=== PATIENT | male | born 1940 | race Caucasian/White ===

== ENCOUNTER 2023-10-11 03:24 | Observation (INO) | payer MEDICARE, SELFPAY ==
[2023-10-10 22:29] VITALS: BMI 21.9
[2023-10-10 22:30] VITALS: BP 117/55
[2023-10-10 22:35] VITALS: BP 122/56
[2023-10-10 22:38] VITALS: BP 117/55
[2023-10-10 22:42] LABS: % Basophils 0.5 % (0-2); % Eosinophils 0.7 % (0-6); % Immature Granulocytes 0.3 % (0-0.5); % Lymphocytes 23.3 % (20.5-51.1); % Monocytes 7.5 % (1.7-9.3); % Neutrophils 67.7 % (42.2-75.2); Absolute Basophils 0.1 10^3/uL (0-0.2); Absolute Eosinophils 0.1 10^3/uL (0-0.7); Absolute Lymphocytes 2.7 10^3/uL (1.2-3.4); Absolute Monocytes 0.9 10^3/uL (0.1-0.6); Absolute Neutrophils 7.8 10^3/uL (1.4-6.5); Hematocrit 38.6 % (39.0-52.0); Hemoglobin 13.2 g/dL (13.0-18.0); Mean Corp Hgb Conc. 34.2 g/dL (33.0-37.0); Mean Corpuscular Hgb 30.2 pg (27.0-31.0); Mean Corpuscular Volume 88.3 fL (80.0-94.0); Mean Platelet Volume 9.4 fL (7.4-10.4); Nucleated Red Blood Cells % 0 % (-); Platelet Count 231 10^3/uL (130-400); Red Blood Cell Count 4.37 10^6/uL (4.70-6.10); Red Cell Dist. Width 14.5 % (11.5-14.5); White Blood Cell Count 11.5 10^3/uL (4.8-10.8)
[2023-10-10 22:56] LABS: INR 1.04; PT 13.7 Sec (11.4-14.6)
[2023-10-10 22:59] LABS: ALT (SGPT) 17 U/L (0-50); AST (SGOT) 20 U/L (17-59); Albumin 3.2 g/dl (3.5-5.0); Alkaline Phosphatase 117 U/L (38-126); Blood Urea Nitrogen 21 mg/dl (9-20); Calcium 9.4 mg/dl (8.4-10.2); Carbon Dioxide 22 mmol/L (22-30); Chloride 106 mmol/L (98-107); Estimated Creatinine Clearance 62 ml/min; Glucose 165 mg/dl (70-99); Potassium 3.8 mmol/L (3.5-5.1); Sodium 134 mmol/L (135-145); Total Bilirubin 0.7 mg/dl (0.2-1.3); Total Protein 5.9 g/dl (6.3-8.2); eGFR > 60.00
[2023-10-10 23:00] VITALS: BP 118/51
[2023-10-10 23:07] LABS: Troponin I < 0.012 ng/ml
--- NOTE | 2023-10-10 23:27 | ED.GENMED ---
History of Present Illness
General
Chief Complaint: Fainting/Passed Out
Time Seen by Provider: 10/10/23 22:56
Travel History
Have you had any contact with someone who has COVID-19?: No
Do you have any symptoms of coronavirus? Fever > 100 degrees, chills, cough, shortness of breath, sore throat, loss of taste or smell, muscle aches, or headache?: No
History of Present Illness
History of Present Illness:
82-year-old male presents emergency department after fainting spell that occurred while he was watching TV with his partner. His partner called 911. He was found to have a systolic blood pressure of 70 and a heart rate of 40 and was given 550 mL
of normal saline.
Past History
Past History
ED Past Medical History: Other (Review documented past medical history and agree)
ED Past Surgical History: Other (Review documented and agree with past medical history)
Phy Exam
Physical Exam
Physical Exam:
Physical Exam
General: no apparent distress, not acutely ill
Neck: supple. no meningeal signs. normal posterior pharynx
Heart: s1/s2 bradycardia, no murmur. equal radial
pulses.
HEENT: Pupils equal round reactive to light, EOMI
Lungs: no acute respiratory distress. clear bilaterally
Abdomen: normal bowel sounds. not tender. no CVAT
Neuro: alert and oriented. no focal neurological deficits cranial nerves II through XII intact
Skin: no rash
Psychiatric: well kept. interactive and cooperative
Extremities: no edema. no calf tenderness. negative homans. good distal pulses
Course
Orders/Labs/Results
Orders:
Orders
10/10/23 22:34
Electrocardiogram (*1) Urgent
Reason for Study: Chest Pain
Cardiac Monitoring- Treatment ONCE
EKG- Treatment ONCE
IV Insert/Care/Rem.- Treatment PRN
O2 Therapy [RESP] Urgent
Titrate/Wean O2 to maintain O2 sat greater than (%): 90
Special Instructions: Maintain sats >/=90%
Pulse Ox/spot Check [RESP] Urgent
Quantity: 1
Special Instructions: ON ROOM AIR
10/10/23 22:37
Complete Blood Count/With Diff Urgent
Comprehensive Metabolic Panel Urgent
Prothrombin Time Urgent
Troponin I Urgent
10/10/23 23:25
Ondansetron Injectable [Zofran] 4 mg IV NOW STA
10/10/23 23:29
0.9% Sodium Chloride 1000 ml [Nss] 1,000 ml IV BOLUS
10/11/23 02:01
Admit/Transfer Patient As Directed
Co-Sign Provider:
Level of Care: Observation services
Assign to:: Telemetry
Physician / Group: John
Diagnosis: Syncope
Reason for Telemetry: Syncope
Date to Stop Telemetry: 10/13/23
Time to Stop Telemetry: 11:00
Code Status As Directed
Resuscitation Status: Full Code
10/13/23 11:00
DC Protocol for Telemetry ONCE
Abnormal Lab Results
10/10/23
22:37
WBC 11.5 H 10^3/uL
(4.8-10.8)
RBC 4.37 L 10^6/uL
(4.70-6.10)
Hct 38.6 L %
(39.0-52.0)
Absolute Neuts (auto) 7.8 H 10^3/uL
(1.4-6.5)
Absolute Monos (auto) 0.9 H 10^3/uL
(0.1-0.6)
Sodium 134 L mmol/L
(135-145)
BUN 21 H mg/dl
(9-20)
Glucose 165 H mg/dl
(70-99)
Total Protein 5.9 L g/dl
(6.3-8.2)
Albumin 3.2 L g/dl
(3.5-5.0)
10/10/23 22:37
10/10/23 22:37
Vital Signs
Initial and Last Documented VS:
Initial Vital Signs
Temp Pulse Resp BP Pulse Ox
98.5 F 52 13 117/55 99
10/10/23 22:30 10/10/23 22:30 10/10/23 22:30 10/10/23 22:30 10/10/23 22:30
Last Documented Vital Signs
Temp Pulse Resp BP Pulse Ox
98.5 F 53 11 100/60 96
10/10/23 22:30 10/11/23 01:30 10/11/23 01:30 10/11/23 01:30 10/11/23 01:30
MDM/Problems Addressed
Differential Diagnosis Includes:
Dysrhythmia, hypovolemia, syncope
MDM/Problems Addressed:
82-year-old male with syncope episode, possibly due to hypovolemia versus vasovagal. No signs of dysrhythmia, but continues with bradycardia. Admit to hospitalist for further management and monitoring. Patient possibly may have a viral syndrome
and possibly overmedicated with antihypertensives.
Chronic conditions affecting care: COPD
Acute Exacerbation and/or Progression of Chronic Illness: COPD
*Pulse Oximetry
Patient hypoxic: no
*EKG
Interpreted by ED Provider?: Yes
EKG Intrepretation Date: 10/10/23
EKG Intrepretation Time: 22:37
Interpretation: abnormal
Comparison EKG: changes noted
Heart Rate: 50
Rate: bradycardiac
Rhythm: sinus
[place]: normal axis
Interval: first degree heart block
QRS Pattern: normal QRS
Ischemia: no ischemia
*Report Manager Interpretation
Rate: bradycardiac
Interpretation: abnormal
Heart Rate: 50
Rhythm: sinus
*Critical Care Note
Total Time (30-74mins, 75-104mins- exclusive of procedures): Not Applicable
Data Reviewed
Review of Other/Old Records Reveals: Testing (Prior echocardiogram shows left EF 60 to 65%, moderate aortic regurgitation, mild tricuspid regurgitation, performed on 04/12/2021)
Source: records
Patient Management
Social determinants of health affecting care: Living situation
Discussion with other providers: Hospitalist
Escalation/DeEscalation of care consider admission/obs:
Admit indicated
ED Attending Note
-
Portions of this chart may have been created with voice recognition software.� Occasional wrong word or��sound alike� substitutions may have occurred due to the inherent limitations of voice recognition software.
Discharge Plan
Departure
Patient Disposition: Admit
Date of Disposition: 10/11/23
Time of Disposition: 01:25
Admit to: Telemetry
Presentation/result/management discussed w/ accepting MD/DO: Hospitalist
Patient with high blood pressure during this ER visit?: No
Condition: Good
Discharge Problem:
Syncope, Vomiting, Acute hypotension, Bradycardia
Prescriptions:
No Action
aspirin 81 mg Tablet
81 mg PO DAILY
ezetimibe 10 mg Tablet
10 mg PO DAILY
rosuvastatin 40 mg Tablet
40 mg PO DAILY
Spiriva Respimat 2.5 mcg/actuation Mist
1 puff INHALATION BID
Incruse Ellipta 62.5 mcg/actuation Blister With Device
1 inh INHALATION DAILY
Norvasc
1 tab PO DAILY
Rx Instructions:
unsure of mg
ramipril
1 tab PO DAILY
Patient Comments:
unsure of mg
Referrals:
Xavier Salazar MD [Family Provider] -
Interventions
Interventions:
*Risk Screen - Suicide Last Done: 10/10/23 22:30
*General Assessment Last Done: 10/10/23 22:30
*Neglect/Abuse Screening Last Done: 10/10/23 22:30
ED- Fall Risk Assessment Last Done: 10/10/23 22:30
*ED COVID-19 Vaccine History Last Done: 10/10/23 22:30
ED- Cardiac Assessment Last Done: 10/10/23 23:05
ED- Neurological Assessment Last Done: 10/10/23 23:05
[2023-10-10 23:30] VITALS: BP 109/47
[2023-10-10] MEDS: NSS 1000 IV (23:32)
[2023-10-10] MEDS: ZOFRAN 4 MG IV (23:33)
[2023-10-11] VITALS (10 sets, daily range): BP systolic 100–130; BP diastolic 56–72; PULSE 59–77; BMI 21.4
--- NOTE | 2023-10-11 02:03 | HPS.HSE ---
Family Physician
-
Family Physician: Xavier Salazar
Chief Complaint
-
Syncope
History of Present Illness
Patient is an 82y M with PMH significant for COPD, spinal stenosis, peripheral neuropathy and HTN who presents to ED complaining of syncopal episode. Patient states that he was seated on his couch this evening and was drinking a diet soda when
he began to feel 'dizzy'. He then lost consciousness for several minutes. Patient states that he did not fall from the couch or suffer any evident injury during this episode. Other than dizzy sensation, he had no prodrome of chest pain, dyspnea,
nausea, etc. Upon waking, he did have N/V x 1 episode of primarily liquid / soda. He presented to the ED for further evaluation. He states that he currently feels tired, but otherwise has no complaints.
He reports one similar episode about 6 months ago. He felt similarly dizzy at that time, but was able to lie down and his symptoms resolved without wiley syncope.
He denies any recent medication changes or adjustments.
He recently returned from his home in [place] and states that he has had a 'cold' since his flight home.
No other recent illness / complaints.
Medical History
Past Medical History
Past Medical History: Reports Other
Additional Past Medical History:
COPD
Hypertension
DDD / Spinal Stenosis
Peripheral Neuropathy
Aortic Regurgitation
Past Surgical History: Reports Other
Additional Past Surgical History:
Cervical Laminectomy
Pilonidal Cyst
T&A
RF Ablation(s)
Social History
Tobacco: Smoker (Current every day smoker. Approx 4 cigarettes per day at present. > 50 pack years total use.)
Alcohol: Occasional
Family History
Family History: Not pertinent
Allergies / Home Medications
Allergies reflects when Allergies were last updated in [employer].
Home Medications with original date entered in [employer]
Allergy/Medication List:
Allergies
Allergy/AdvReac Type Severity Reaction Status Date / Time
No Known Allergies Allergy Verified 10/10/23 22:34
Home Medications
Norvasc 1 tab PO DAILY 10/10/23
aspirin 81 mg tablet 81 mg PO DAILY 10/10/23
ezetimibe 10 mg tablet 10 mg PO DAILY 10/10/23
ramipril 1 tab PO DAILY 10/10/23
rosuvastatin 40 mg tablet 40 mg PO DAILY 10/10/23
tiotropium bromide 2.5 mcg/actuation mist for inhalation (Spiriva Respimat) 1 puff inhalation BID 10/10/23
umeclidinium 62.5 mcg/actuation blister powder for inhalation (Incruse Ellipta) 1 inh inhalation DAILY 10/10/23
Review of Systems
-
History Source: Patient
A 12 point ROS was completed and negative except as noted: Yes
Constitutional: Reports Weight Loss and Fatigue; Denies Fever or Chills
Respiratory: Denies Cough or Trouble Breathing
Cardiac: Reports Syncope; Denies Chest Pain or Palpitations
Abdomen/GI: Reports Nausea and Vomiting; Denies Abdominal Pain or Diarrhea
: Denies Dysuria or Frequency
Musculoskeletal: Denies Joint Pain or Edema
Neurological: Reports Dizzy and Other (Neuropathy); Denies Headache
Psych: Denies Depression or Anxiety
Physical Exam
Vital Signs
Vital Signs
Temp Pulse Resp BP Pulse Ox
98.5 F 53 11 100/60 96
10/10/23 22:30 10/11/23 01:30 10/11/23 01:30 10/11/23 01:30 10/11/23 01:30
Physical Exam
General: Other (82y M in no acute distress.)
HEENT: Moist mucous membranes and PERRLA
Respiratory: Other (Few scattered squeaks and wheezes. Otherwise clear.)
Cardiac: S1/S2 and Regular Rhythm; No Murmur
GI: Soft, Non Tender, Non Distended and Normal Bowel Sounds
Musculoskeletal: No Clubbing, No Cyanosis and No Edema
Neuro: AO x 3
Laboratory Results
-
10/10/23 22:37
10/10/23 22:37
Laboratory Results
PT 13.7 Sec (11.4-14.6) 10/10/23 22:37
INR 1.04 10/10/23 22:37
Total Bilirubin 0.7 mg/dl (0.2-1.3) 10/10/23 22:37
AST 20 U/L (17-59) 10/10/23 22:37
ALT 17 U/L (0-50) 10/10/23:37
Alkaline Phosphatase 117 U/L (38-126) 10/10/23 22:37
Troponin I < 0.012 ng/ml 10/10/23:37
Impression/Plan
-
A/P: Patient is an 82y M with PMH significant for COPD, HTN and neuropathy who presents to ED s/p syncopal episode at home.
Syncope
Hypotension
Bradycardia
- Observe overnight for further evaluation and treatment.
- ? syncope secondary to mild hypotension / bradycardia.
- ? vasovagal event given associated N/V.
- Monitor on tele for any arrhythmia, significant pauses or blocks.
- Patient is on no chronotropic medications.
- Consider Cardio eval if any significant abnormalities (sees Dr. Lowe).
- PT / OT evals in the AM.
- Monitor for any new / recurrent symptoms.
- Check COVID / influenza for completeness given recent air travel and 'cold symptoms'.
Benign Hypertension
- Currently hypotensive as noted above.
- Patient denies any recent med adjustments.
- Reports recent weight loss and ? if current regimen is no longer appropriate.
- Hold BP meds acutely.
- Resume at lower doses if BP rises.
COPD without Acute Exacerbation
- No wheezing on exam and no complaints of dyspnea.
- Continue current inhaler regimen.
- Albuterol PRN.
Spinal Stenosis
Peripheral Neuropathy
- Stable. Patient notes that he uses a 4-wheeled walker at baseline.
- s/p cervical spine surgery for stenosis - no appreciable change in neuropathic symptoms thus far per patient.
- PT / OT evals as noted above.
DVT Prophylaxis: SCDs
Code Status: Full
[2023-10-11 03:15] LABS: COVID-19 Antigen Negative (Negative)
[2023-10-11] MEDS: TYLENOL 650 MG PO (03:29)
[2023-10-11 04:12] LABS: Hematocrit 40.6 % (39.0-52.0); Hemoglobin 13.5 g/dL (13.0-18.0); Mean Corp Hgb Conc. 33.3 g/dL (33.0-37.0); Mean Corpuscular Volume 90.2 fL (80.0-94.0); Mean Platelet Volume 9.4 fL (7.4-10.4); Platelet Count 226 10^3/uL (130-400); Red Cell Dist. Width 14.6 % (11.5-14.5); White Blood Cell Count 9.3 10^3/uL (4.8-10.8)
[2023-10-11] MEDS: LR 1000 IV (04:20)
[2023-10-11 04:36] LABS: Troponin I < 0.012 ng/ml
[2023-10-11 04:59] LABS: Blood Urea Nitrogen 21 mg/dl (9-20); Calcium 9.5 mg/dl (8.4-10.2); Carbon Dioxide 23 mmol/L (22-30); Chloride 107 mmol/L (98-107); Estimated Creatinine Clearance 60 ml/min; Glucose 139 mg/dl (70-99); Potassium 4.4 mmol/L (3.5-5.1); Sodium 136 mmol/L (135-145); eGFR > 60.00
[2023-10-11 05:28] LABS: TSH Reflex To Free T4 0.82 uIU/ml (0.47-4.68)
[2023-10-11] MEDS: SPIRIVA RESPIMAT 2.5 MCG 1 PUFF INH (08:00)
[2023-10-11] MEDS: CRESTOR 40 MG PO (08:15)
[2023-10-11] MEDS: ZETIA 10 MG PO (08:15)
[2023-10-11] MEDS: LOW STRENGTH ASPIRIN 81 MG PO (08:15)
--- NOTE | 2023-10-11 10:27 | PTCARENOTE ---
Pt admitted overnight and this nurse was given report this AM. pt was cooperative and went down for his Chest Xray but at this point is refusing all other treatment. pt refused to let phlebotomy draw his troponin, refused to talk to the concrete floater
about the 15lb weight loss that he has unexpectedly had, and has refused anything until MD comes tobedside to talk to him. MD made aware. pt was running bradycardic this AM currently sitting in the 60/70's on tele at this time.
--- NOTE | 2023-10-11 10:39 | CM ---
Reviewed the chart notes and spoke with the patient at the bedside. [employer] letter provided and explained. There were no questions with regards to the letter.
The patient resides with two caregivers in a three story home with no steps to enter. The patient has a rolling walker, shower chair, rails, and a stair glide. The patient reports no VN or SNF in the past. The patient confirmed his pharmacy of
choice is the [facility]. The patient is being discharged to home today with no additional needs. The patient's route sales delivery drivers supervisor will provide transportation. CM continues to be available to patient/family and is monitoring medical plan for
needs at discharge.
Plan: Discharge to home today.
--- NOTE | 2023-10-11 10:50 | W.DS.TRANS ---
DC Summary - Bottle Tester
-
Discharge Instructions:
Discharge Diagnosis/Procedures Syncope.
Hypotension
Diet Regular
Stop these medications: Ramipril and Norvasc until seen by PMD and
cardiology
Instructions:
Stand-Alone Forms:
Changes to Home Medications: Yes
Discharge Medications:
DC Medications w/original date entered in [employer]
aspirin 81 mg tablet 81 mg PO DAILY 10/10/23
ezetimibe 10 mg tablet 10 mg PO DAILY 10/10/23
rosuvastatin 40 mg tablet 40 mg PO DAILY 10/10/23
tiotropium bromide 2.5 mcg/actuation mist for inhalation (Spiriva Respimat) 1 puff inhalation BID 10/10/23
umeclidinium 62.5 mcg/actuation blister powder for inhalation (Incruse Ellipta) 1 inh inhalation DAILY 10/10/23
Home Medication Changes
Ramipril and Norvasc stopped due to symptomatic hypotension with syncope.
Pending Results: No
--- NOTE | 2023-10-11 11:06 | PTCARENOTE ---
pt tele monitor and IV removed for discharge. pt is discharged to home with his caregivers and partner. pt is aaox3 and this nurse went over discharged instructions with the patient.
== END 2023-10-11 11:18 | disposition home or self-care (01) ==
LOC: 2 NORTH 03:24
PROVIDERS: Emergency Medicine; ADMITTING PHYSICIAN Hospitalist; ATTENDING PHYSICIAN Internal Medicine; EMERGENCY PHYSICIAN Emergency Medicine; FAMILY PHYSICIAN Internal Medicine
DX: R55 Syncope and collapse (principal); J44.9 Chronic obstructive pulmonary disease, unspecified; G62.9 Polyneuropathy, unspecified; I10 Essential (primary) hypertension; M48.00 Spinal stenosis, site unspecified; I35.1 Nonrheumatic aortic (valve) insufficiency; F17.210 Nicotine dependence, cigarettes, uncomplicated; R00.1 Bradycardia, unspecified; Z11.52 Encounter for screening for COVID-19; Z79.82 Long term (current) use of aspirin; Z79.899 Other long term (current) drug therapy
CPT/HCPCS: 71046; 80048; 80053; 84443; 84484; 85025; 85027; 85610; 87502; 87811; 93005; 94640; 96361; 96374; 99285; G0378

== ENCOUNTER → 2023-11-19 12:32 | Outpatient (REF) | payer MEDICARE, SELFPAY ==
[2023-11-19 14:05] LABS: Blood Urea Nitrogen 25 mg/dl (9-20); Calcium 10.3 mg/dl (8.4-10.2); Carbon Dioxide 23 mmol/L (22-30); Chloride 107 mmol/L (98-107); Glucose 85 mg/dl (70-99); Potassium 4.5 mmol/L (3.5-5.1); Sodium 137 mmol/L (135-145); eGFR > 60.00
== END ==
LOC: RAD 12:32
PROVIDERS: Physician Assistant Medical; ATTENDING PHYSICIAN Specialist; FAMILY PHYSICIAN Internal Medicine; REFERRING PHYSICIAN Surgery
DX: Z98.1 Arthrodesis status (principal); I10 Essential (primary) hypertension
CPT/HCPCS: 36415; 72040; 80048

== ENCOUNTER → 2023-12-12 12:25 | Outpatient (REF) | payer MEDICARE, SELFPAY | LOC: WOUND 12:25 | PROVIDERS: ATTENDING PHYSICIAN Surgery; FAMILY PHYSICIAN Internal Medicine | DX: I70.238 Atherosclerosis of native arteries of right leg with ulceration of other part of lower leg (principal); L97.813 Non-pressure chronic ulcer of other part of right lower leg with necrosis of muscle; L97.812 Non-pressure chronic ulcer of other part of right lower leg with fat layer exposed; I87.2 Venous insufficiency (chronic) (peripheral); I44.4 Left anterior fascicular block; F17.200 Nicotine dependence, unspecified, uncomplicated; I35.1 Nonrheumatic aortic (valve) insufficiency; J44.9 Chronic obstructive pulmonary disease, unspecified | CPT/HCPCS: 11042; 11043; 99204; 99406 ==

== ENCOUNTER → 2023-12-19 13:45 | Outpatient (REF) | payer MEDICARE, SELFPAY | LOC: WOUND 13:45 | PROVIDERS: ATTENDING PHYSICIAN Surgery; FAMILY PHYSICIAN Internal Medicine | DX: L97.813 Non-pressure chronic ulcer of other part of right lower leg with necrosis of muscle (principal); L97.812 Non-pressure chronic ulcer of other part of right lower leg with fat layer exposed; I87.2 Venous insufficiency (chronic) (peripheral); I73.9 Peripheral vascular disease, unspecified; I44.4 Left anterior fascicular block; I35.1 Nonrheumatic aortic (valve) insufficiency; J44.9 Chronic obstructive pulmonary disease, unspecified; F17.200 Nicotine dependence, unspecified, uncomplicated | CPT/HCPCS: 11042 ==

== ENCOUNTER → 2023-12-30 11:01 | Outpatient (REF) | payer MEDICARE, SELFPAY | LOC: WOUND 11:01 | PROVIDERS: ATTENDING PHYSICIAN Surgery; FAMILY PHYSICIAN Internal Medicine | DX: I70.238 Atherosclerosis of native arteries of right leg with ulceration of other part of lower leg (principal); L97.813 Non-pressure chronic ulcer of other part of right lower leg with necrosis of muscle; L97.812 Non-pressure chronic ulcer of other part of right lower leg with fat layer exposed; I87.2 Venous insufficiency (chronic) (peripheral); I73.9 Peripheral vascular disease, unspecified; F17.200 Nicotine dependence, unspecified, uncomplicated; I44.4 Left anterior fascicular block; I35.1 Nonrheumatic aortic (valve) insufficiency; J44.9 Chronic obstructive pulmonary disease, unspecified | CPT/HCPCS: 11042 ==

== ENCOUNTER → 2024-01-21 13:07 | Outpatient (REF) | payer MEDICARE, SELFPAY | LOC: WOUND 13:07 | PROVIDERS: ATTENDING PHYSICIAN Surgery; FAMILY PHYSICIAN Internal Medicine | DX: I70.238 Atherosclerosis of native arteries of right leg with ulceration of other part of lower leg (principal); L97.813 Non-pressure chronic ulcer of other part of right lower leg with necrosis of muscle; L97.812 Non-pressure chronic ulcer of other part of right lower leg with fat layer exposed; I87.2 Venous insufficiency (chronic) (peripheral); I44.4 Left anterior fascicular block; I35.1 Nonrheumatic aortic (valve) insufficiency; J44.9 Chronic obstructive pulmonary disease, unspecified; F17.200 Nicotine dependence, unspecified, uncomplicated | CPT/HCPCS: 99213 ==

== ENCOUNTER → 2024-01-30 13:41 | Outpatient (REF) | payer MEDICARE, SELFPAY | LOC: WOUND 13:41 | PROVIDERS: ATTENDING PHYSICIAN Surgery; FAMILY PHYSICIAN Internal Medicine | DX: I70.238 Atherosclerosis of native arteries of right leg with ulceration of other part of lower leg (principal); L97.813 Non-pressure chronic ulcer of other part of right lower leg with necrosis of muscle; L97.812 Non-pressure chronic ulcer of other part of right lower leg with fat layer exposed; I87.2 Venous insufficiency (chronic) (peripheral); I44.4 Left anterior fascicular block; I35.1 Nonrheumatic aortic (valve) insufficiency; J44.9 Chronic obstructive pulmonary disease, unspecified | CPT/HCPCS: 11042 ==

== ENCOUNTER → 2024-02-07 12:24 | Outpatient (REF) | payer MEDICARE, SELFPAY ==
[2024-02-07 14:11] LABS: Blood Urea Nitrogen 20 mg/dl (9-20); Calcium 10.1 mg/dl (8.4-10.2); Carbon Dioxide 22 mmol/L (22-30); Chloride 109 mmol/L (98-107); Glucose 89 mg/dl (70-99); Potassium 4.7 mmol/L (3.5-5.1); Sodium 138 mmol/L (135-145); eGFR > 60.00
== END ==
LOC: RAD 12:24
PROVIDERS: ATTENDING PHYSICIAN Surgery; FAMILY PHYSICIAN Internal Medicine; OTHER PHYSICIAN Anesthesiology Pain Medicine; OTHER PHYSICIAN Neurological Surgery; REFERRING PHYSICIAN Specialist
DX: I70.238 Atherosclerosis of native arteries of right leg with ulceration of other part of lower leg (principal); I87.2 Venous insufficiency (chronic) (peripheral); I73.9 Peripheral vascular disease, unspecified; I10 Essential (primary) hypertension
CPT/HCPCS: 36415; 80048; 93922; 93925; 93971

== ENCOUNTER → 2024-02-11 12:43 | Outpatient (REF) | payer MEDICARE, SELFPAY | LOC: WOUND 12:43 | PROVIDERS: ATTENDING PHYSICIAN Surgery; FAMILY PHYSICIAN Internal Medicine | DX: I70.238 Atherosclerosis of native arteries of right leg with ulceration of other part of lower leg (principal); L97.813 Non-pressure chronic ulcer of other part of right lower leg with necrosis of muscle; L97.812 Non-pressure chronic ulcer of other part of right lower leg with fat layer exposed; I87.2 Venous insufficiency (chronic) (peripheral); I44.4 Left anterior fascicular block; I35.1 Nonrheumatic aortic (valve) insufficiency; J44.9 Chronic obstructive pulmonary disease, unspecified; F17.200 Nicotine dependence, unspecified, uncomplicated | CPT/HCPCS: 99213 ==

== ENCOUNTER → 2024-02-17 13:53 | Outpatient (REF) | payer MEDICARE, SELFPAY ==
[2024-02-17 14:22] LABS: % Basophils 0.6 % (0-2); % Immature Granulocytes 0.1 % (0-0.5); % Lymphocytes 31.4 % (20.5-51.1); % Monocytes 7.9 % (1.7-9.3); Absolute Basophils 0.1 10^3/uL (0-0.2); Absolute Eosinophils 0.1 10^3/uL (0-0.7); Absolute Lymphocytes 2.8 10^3/uL (1.2-3.4); Absolute Monocytes 0.7 10^3/uL (0.1-0.6); Absolute Neutrophils 5.2 10^3/uL (1.4-6.5); Hematocrit 43.5 % (39.0-52.0); Mean Corp Hgb Conc. 34.5 g/dL (33.0-37.0); Mean Corpuscular Hgb 30.9 pg (27.0-31.0); Mean Corpuscular Volume 89.7 fL (80.0-94.0); Nucleated Red Blood Cells % 0 % (-); Platelet Count 228 10^3/uL (130-400); Red Blood Cell Count 4.85 10^6/uL (4.70-6.10); Red Cell Dist. Width 15.2 % (11.5-14.5); White Blood Cell Count 8.9 10^3/uL (4.8-10.8)
== END ==
LOC: REG 13:53
PROVIDERS: ATTENDING PHYSICIAN Internal Medicine; FAMILY PHYSICIAN Internal Medicine
DX: Z01.818 Encounter for other preprocedural examination (principal); M48.04 Spinal stenosis, thoracic region
CPT/HCPCS: 36415; 85025

== ENCOUNTER → 2024-04-17 11:35 | Outpatient (REF) | payer MEDICARE, SELFPAY | LOC: RAD 11:35 | PROVIDERS: ATTENDING PHYSICIAN Orthopaedic Surgery; FAMILY PHYSICIAN Internal Medicine | DX: M89.8X5 Other specified disorders of bone, thigh (principal); M25.551 Pain in right hip; M54.50 Low back pain, unspecified | CPT/HCPCS: 72100; 73502; 73552 ==

== ENCOUNTER → 2024-06-02 12:51 | Outpatient (REF) | payer MEDICARE, SELFPAY | LOC: RAD 12:51 | PROVIDERS: ATTENDING PHYSICIAN Surgery Vascular Surgery; FAMILY PHYSICIAN Internal Medicine | DX: I73.9 Peripheral vascular disease, unspecified (principal) | CPT/HCPCS: 93922 ==

== ENCOUNTER 2024-06-10 23:03 | Inpatient (IN) | payer MEDICARE, SELFPAY ==
--- NOTE | 2024-06-10 19:40 | ED.GENMED ---
History of Present Illness
General
Chief Complaint: Fall
Source: patient
Exam Limitations: none
Time Seen by Provider: 06/10/24 19:04
Nursing documentation reviewed up to this point in time: agreed with
History of Present Illness
History of Present Illness:
Patient presents to ED secondary to persistent right hip pain, after falling onto his right hip after lunch this afternoon. Denies any other injury. Denies loss of sensation or weakness. Patient currently does not take any blood thinning
medications. Patient has taken Tylenol at home with minimal relief in symptoms.
Past History
Past History
ED Past Medical History: Other (Review documented past medical history and agree)
ED Past Surgical History: Other (Review documented and agree with past medical history)
Review of Systems
Review of Systems
Allergies reviewed?: Yes
All Other Systems: ROS reviewed and negative except as documented in HPI and ROS
Constitutional: Reports no symptoms
ABD/GI: Reports no symptoms
Musculoskeletal: Reports other (hip pain)
Skin: Reports no symptoms
Neurological: Reports no symptoms
Phy Exam
Physical Exam
Physical Exam:
Physical Exam
General: mild painful distress, not acutely ill. afebrile.
Head: nc/at. eomi
Neck: supple. no meningeal signs.
Abdomen: normal bowel sounds. not tender.
Neuro: alert and oriented. no focal neurological deficits
Skin: no rash
Psychiatric: well kept. interactive and cooperative
Extremities: right hip externally rotated with diffuse tenderness to palpation.
Course
Orders/Labs/Results
Orders:
Orders
06/10/24 19:29
HYDROmorphone [Dilaudid] 0.5 mg IV NOW STA
CR Hip - RT w/wo Pel 2-3 Vw* Urgent
Comment:
Reason For Exam: trauma
Include a pelvis x-ray?: Yes
06/10/24 19:41
Ketorolac [Toradol] 15 mg IV NOW STA
06/10/24 22:13
Acetaminophen [Tylenol] 1,000 mg PO NOW STA
06/10/24 22:25
Admit/Transfer Patient As Directed
Co-Sign Provider:
Level of Care: Inpatient admission
Assign to:: Telemetry
Physician / Group: John
Diagnosis: Hip Fracture
Reason for Telemetry: Arrhythmia
Date to Stop Telemetry: 06/13/24
Time to Stop Telemetry: 11:00
Reason for Hospitalization: Hip Fracture
Expected length of stay greater than two midnights?: Yes
ELOS- Estimated Length of Stay in days: 3
I certify the patient meets the requirements for IP care: Yes
PRN Pain Medication Management As Directed
May give lesser potent ordered pain med per pt: Yes
preference::
Protocol:: Medication orders for pain may be administered in a
manner that supports deferring to patient preference
when the pt is:
- Requesting an ordered lesser potent pain medication.
Least to most potent pain medications are defined
as: acetaminophen < NSAID < tramadol < opioids
(morphine, oxycodone, hydromorphone).
- Requesting a lesser dose of the same medication IF
ORDERED.
- Requesting a less intrusive route of administration
if both routes are prescribed by the provider (PO <
IV).
06/10/24 22:27
Code Status As Directed
Resuscitation Status: Full Code
06/10/24 22:36
BMP [Basic Metabolic Panel] Urgent
CBC/No Diff [Complete Blood Count/No Diff] Stat
06/10/24 22:48
Urinalysis Reflex To Culture Urgent
Date Specimen was Collected: 06/11/24
Time Specimen was Collected: 05:23
06/11/24 00:23
HYDROmorphone [Dilaudid] 0.25 mg IV Q3HPRN PRN
Oxycodone [Roxicodone] 10 mg PO Q4HPRN PRN
Oxycodone [Roxicodone] 5 mg PO Q4HPRN PRN
Tamsulosin [Flomax] 0.4 mg PO DAILYPRN PRN
06/11/24 00:23
ORTHOPEDIC CONSULT Routine
Consulting Provider: Dimitris Frost
Was physician already notified: Yes
Activity As Directed
Activity Level: Bedrest
Bladder Scan As Directed
Follow Bladder Retention/Intermittent Cath Algorithm?: Yes
PRN if no void in __ hours: 6
Comment: if not voiding 6 hrs upon arrival to floor, bladder scan & follow algorithm
Intake/ Output As Directed
Frequency: Per unit guidelines
Pneumatic Compression Sleeves As Directed
Type: Knee high
Straight Cath As Directed
Frequency: Per Retention Algorithm
Additional Instructions: straight cath as needed per acute urinary retention algorithm for 24 hrs
Additional Instructions: for bladder scan greater than 400 mL
Vital Signs As Directed
Frequency: Per unit guidelines
DX Deep Vein Thrombosis Video Routine
06/11/24 Breakfast
NPO
Allow oral meds: Yes
Allow clear liquids: 4hrs prior to procedure
NPO with Ice Chips: Yes
Comment: may have unrestricted clear liquid up to 4 hrs prior to scheduled procedure
06/11/24 08:00
Acetaminophen [Tylenol] 1,000 mg PO TID
Ezetimibe [Zetia] 10 mg PO DAILY
Fluticasone/Salmeterol 115/21 [Advair Hfa 115/21 Mcg Inhaler] 2 puff INH R BID
Polyethylene Glycol Powder [Miralax] 17 grams PO DAILY
Ramipril [Altace] 30 mg PO DAILY
Rosuvastatin Calcium [Crestor] 40 mg PO DAILY
Tiotropium [place] 2.5 Mcg [Spiriva Respimat 2.5 Mcg] 2 puff INH R DAILY
06/13/24 11:00
DC Protocol for Telemetry ONCE
Abnormal Lab Results
06/10/24
22:36
WBC 16.3 H 10^3/uL
(4.8-10.8)
BUN 23 H mg/dl
(9-20)
Glucose 59 L mg/dl
(70-99)
Calcium 10.4 H mg/dl
(8.4-10.2)
06/10/24 22:36
06/10/24 22:36
Vital Signs
Initial and Last Documented VS:
Initial Vital Signs
Pulse Ox
96
06/10/24 19:02
Last Documented Vital Signs
Temp Pulse Resp BP Pulse Ox
97.5 F 85 16 98/70 96
06/12/24 15:23 06/12/24 15:23 06/12/24 15:23 06/12/24 15:23 06/12/24 15:23
MDM/Problems Addressed
MDM/Problems Addressed:
History, exam, and x-ray consistent with right hip fracture. Otherwise, patient remains afebrile, hemodynamically stable and neurologically intact. Patient will be admitted for further evaluation and treatment.
Discussed with on-call orthopedic surgeon, Dr. Frost, via [place] text.
*Critical Care Note
Total Time (30-74mins, 75-104mins- exclusive of procedures): Not Applicable
ED Attending Note
-
Portions of this chart may have been created with voice recognition software.� Occasional wrong word or��sound alike� substitutions may have occurred due to the inherent limitations of voice recognition software.
Discharge Plan
Departure
Patient Disposition: Admit
Date of Disposition: 06/10/24
Time of Disposition: 21:47
Admit to: Med/Surg
Presentation/result/management discussed w/ accepting MD/DO: Hospitalist
Discharge Problem:
Closed hip fracture
Interventions
Interventions:
*Risk Screen - Suicide Last Done: 06/10/24 21:42
*General Assessment Last Done: 06/10/24 19:30
*Neglect/Abuse Screening Last Done: 06/10/24 21:42
ED- Fall Risk Assessment Last Done: 06/10/24 21:43
*ED COVID-19 Vaccine History Last Done: 06/10/24 19:30
*Nursing Disposition Last Done: 06/11/24 00:10
ED-Musculoskeletal Assessment Last Done: 06/10/24 23:40
ED- Neurological Assessment Last Done: 06/10/24 23:40
ED-Skin Assessment Last Done: 06/10/24 23:40
Discharge Date and Time
Discharge Date/Time: 06/11/24 00:10
[2024-06-10] MEDS: TORADOL 15 MG IV (19:45)
[2024-06-10] MEDS: DILAUDID 0.5 MG IV (19:46)
--- NOTE | 2024-06-10 21:45 | PTCARENOTE ---
Patient and family friend admits to falls when patient drinks alcohol, patient admits to drinking alcohol tonight prior to fall
--- NOTE | 2024-06-10 21:57 | HPS.HSE ---
Addendum entered and electronically signed by David Lopez DO 06/11/24 00:36:
Patient seen and examined independently. Agree with findings and plan as set forth by Julienne Bernabe PA-C.
Patient is an 83y M with PMH significant for COPD, hypertension and spinal stenosis who presents to ED complaining of R hip pain s/p fall at home today. Patient states that he tripped over his rollator and fell onto his R side. he noted
immediate pain in the R hip at that time. He had a similar fall about 8 weeks ago - also onto his R hip. Imaging at that time was unremarkable. imaging in the ED today shows R hip fracture.
Patient denies any prodrome of lightheadedness, dizziness, chest pain or dyspnea.
No recent illness including cough, fevers / chills, N/V/D.
Ass:
Right Hip Fracture
COPD without Acute Exacerbation
Benign Hypertension
Spinal Stenosis
Plan:
Admit for further evaluation and treatment.
Bedrest, pain control, NPO after midnight.
Ortho evaluation for operative repair.
EKG is unremarkable. No personal history of NH, CVA, etc
Patient is at average risk for complications compared to an otherwise healthy individual of his age.
Benefits of planned procedure outweigh the potential risks and patient may proceed to OR without additional pre-op evaluation(s).
Post-op pain control, PT, DVT prophylaxis, etc.
Continue usual home med regimen with holding parameters for ramipril.
Original Note:
Family Physician
-
Family Physician: Xavier Salazar
Chief Complaint
-
Right Hip Pain
History of Present Illness
Patient is an 83 y/o male past medical history of COPD, Hypertension, Spinal Stenosis and Peripheral Neuropathy who presents with right hip pain following a fall earlier today. Patient reports while he was ambulating his rollator tipped causing him
to loss his balance resulting in fall. He reports he landed on his right side. He states he has been unable to ambulate since the fall due to right hip pain. He denies chest pains, palpitations, dizziness or shortness of breath prior to the fall.
He denies hitting his head during the event.
Medical History
Past Medical History
Past Medical History: Reports Other
Additional Past Medical History:
COPD
Hypertension
Hyperlipidemia
DDD / Spinal Stenosis
Peripheral Neuropathy
Aortic Regurgitation
Past Surgical History: Reports Other
Additional Past Surgical History:
Cervical Laminectomy
Thoracic Laminectomy
Pilonidal Cyst
T&A
RF Ablation(s)
Social History
Tobacco: Smoker (Current every day smoker. Approx 4 cigarettes per day at present. > 50 pack years total use.)
Alcohol: Occasional
Family History
Family History: Not pertinent
Allergies / Home Medications
Allergies reflects when Allergies were last updated in [facility].
Home Medications with original date entered in [facility]
Allergy/Medication List:
Allergies
Allergy/AdvReac Type Severity Reaction Status Date / Time
No Known Allergies Allergy Verified 10/10/23 22:34
Home Medications
ezetimibe 10 mg tablet 10 mg PO DAILY High Cholesterol 10/10/23
rosuvastatin 40 mg tablet 40 mg PO DAILY High Cholesterol 10/10/23
umeclidinium 62.5 mcg/actuation blister powder for inhalation (Incruse Ellipta) 1 inh inhalation R DAILY Lung/Breathing Issues 10/10/23
aspirin 81 mg tablet,delayed release 81 mg PO DAILY 06/10/24
fluticasone 250 mcg-salmeterol 50 mcg/dose blistr powdr for inhalation 1 inh inhalation R BID 06/10/24
ramipril 10 mg capsule 30 mg PO DAILY 06/10/24
Review of Systems
-
A 12 point ROS was completed and negative except as noted: Yes
Constitutional: Denies Fever or Chills
Respiratory: Denies Cough or Trouble Breathing
Cardiac: Denies Chest Pain or Palpitations
Abdomen/GI: Reports Constipated (Intermittent constipation); Denies Abdominal Pain, Nausea or Vomiting
Musculoskeletal: Reports See HPI
Physical Exam
Vital Signs
Vital Signs
Pulse Resp Pulse Ox
76 13 95
06/10/24 21:30 06/10/24 21:30 06/10/24 21:30
Physical Exam
General: Comfortable and Conversant
HEENT: Anicteric and Moist mucous membranes
Respiratory: Clear and Non Labored Respirations
Cardiac: S1/S2 and Regular Rhythm
GI: Soft and Non Tender
Rectal: Deferred by Provider
Musculoskeletal: No Clubbing, No Cyanosis, No Edema and Other (Holding right lower extremity in flexed position)
Skin: Warm and Dry
Neuro: Awake, Alert, Oriented and Nonfocal/grossly intact
Psych: Calm
Laboratory Results
-
CBC, BMP and ECG are pending
Hip X-Ray:
Mildly displaced right femoral neck fracture with slight foreshortening.
Data Reviewed
-
Old Records: Reviewed
Impression/Plan
-
Right Hip Fracture
-Consult Ortho
-NPO after midnight for OR tomorrow
-Continue Tylenol 1000mg TID
-Continue oxycodone for mild/moderate pain and Dilaudid for severe pain
-Add Miralax for bowel regimen
COPD, no acute exacerbation
-Continue fluticasone - salmeterol and Incruse Ellipta
Essential hypertension
-Continue ramipril with hold parameters
Hyperlipidemia
-Continue Crestor and Zetia
DVT proph: SCDs
Code Status: Full Code
[2024-06-10] MEDS: TYLENOL 1000 MG PO (22:28)
[2024-06-10 22:44] LABS: Hematocrit 44.1 % (39.0-52.0); Hemoglobin 15.1 g/dL (13.0-18.0); Mean Corp Hgb Conc. 34.2 g/dL (33.0-37.0); Mean Corpuscular Hgb 30.8 pg (27.0-31.0); Mean Corpuscular Volume 89.8 fL (80.0-94.0); Mean Platelet Volume 10.2 fL (7.4-10.4); Platelet Count 236 10^3/uL (130-400); Red Blood Cell Count 4.91 10^6/uL (4.70-6.10); Red Cell Dist. Width 14.5 % (11.5-14.5); White Blood Cell Count 16.3 10^3/uL (4.8-10.8)
[2024-06-10 23:00] LABS: Blood Urea Nitrogen 23 mg/dl (9-20); Calcium 10.4 mg/dl (8.4-10.2); Carbon Dioxide 22 mmol/L (22-30); Chloride 105 mmol/L (98-107); Estimated Creatinine Clearance 64 ml/min; Glucose 59 mg/dl (70-99); Potassium 4.4 mmol/L (3.5-5.1); Sodium 139 mmol/L (135-145); eGFR > 60.00
[2024-06-10 23:41] VITALS: BP 166/87
[2024-06-11] VITALS (18 sets, daily range): BP systolic 92–179; BP diastolic 58–93; BMI 26.8
[2024-06-11] MEDS: D5/0.9% SODIUM CHLORIDE 500 IV (01:04)
--- NOTE | 2024-06-11 01:07 | PTCARENOTE ---
00:15 pt rec'vd from ER, aaox3, RLE internally rotated, static overlay in place, IV fluids hung, current pain 0/10 when not moving, pt oriented to unit
[2024-06-11] MEDS: FLOMAX 0.4 MG PO (03:44)
[2024-06-11] MEDS: ROXICODONE 10 MG PO (03:44)
--- NOTE | 2024-06-11 07:23 | CON.ORTHO ---
Consultation - Orthopedics
History
HPI: 83-year-old male presented to the emergency department status post mechanical fall at home with complaints of right hip pain and inability to bear weight. He was subsequently diagnosed with a right femoral neck fracture. He was admitted to
the hospital service. Orthopedics is consulted for further evaluation and treatment. This morning patient reports that he tripped and fell while using his rollator walker at home. Reports that he lives with the spouse and 2 caretakers. Does
report active cigarette smoking history as well as history significant for COPD and spinal stenosis. Pain is well localized to the right hip. Pain is made worse with direct palpation affected area and with attempted motion of the hip.
Allergies / Home Medications
Past medical history: COPD, hypertension, spinal stenosis
Past surgical history: Cervical laminectomy, thoracic laminectomy, ablation procedures spine, pilonidal cyst
Social history: Current daily smoker, occasional alcohol use, lives with family at home
Family history: Not pertinent
Allergy/AdvReac Type Severity Reaction Status Date / Time
No Known Allergies Allergy Verified 10/10/23 22:34
�Medication �Instructions �Recorded
ezetimibe 10 mg tablet 10 mg PO DAILY High Cholesterol 10/10/23
rosuvastatin 40 mg tablet 40 mg PO DAILY High Cholesterol 10/10/23
umeclidinium 62.5 mcg/actuation 1 inh inhalation R DAILY 10/10/23
blister powder for inhalation Lung/Breathing Issues
(Incruse Ellipta)
aspirin 81 mg tablet,delayed 81 mg PO DAILY Blood Clot 06/10/24
release Prevention/Tx
fluticasone 250 mcg-salmeterol 50 1 inh inhalation R BID 06/10/24
mcg/dose blistr powdr for Lung/Breathing Issues
inhalation
ramipril 10 mg capsule 30 mg PO DAILY Blood Pressure 06/10/24
Vital Signs / Lab Results
Temp Pulse Resp BP Pulse Ox
97.8 F 76 20 160/79 97
06/11/24 02:40 06/11/24 02:40 06/11/24 02:40 06/11/24 02:40 06/11/24 02:40
06/10/24 22:36
06/10/24 22:36
10 point review systems reviewed and negative unless otherwise stated
General: Pleasant, no acute distress, mild wheeze audible
Musculoskeletal right lower extremity
Skin intact, no erythema, no ecchymotic staining
Extremity shortened externally rotated
Distended palpation of the groin or lateral trochanteric flare
Pain elicited with passive motion of right hip
No palpable knee effusion
Positive EHL, FHL, ankle dorsiflexion, plantarflexion
Distal extremity warm and pink
No other areas of bony tenderness palpation or crepitation of long bones and joints on tertiary examination
Diagnostic studies
X-rays right hip independently viewed by myself shows a displaced transcervical femoral neck fracture
Assessment / Plan
83-year-old male history of COPD, active smoker status post fall with displaced right femoral neck fracture. I do long detailed discussion the patient regarding diagnosis and treatment options. We discussed both surgical and nonsurgical options.
After discussion with my recommendation proceed with surgical intervention the form of right hip hemiarthroplasty. We discussed risks benefits and alternatives of surgery. We discussed the usual expected perioperative postoperative course. Verbal
consent was obtained and written informed consent will be obtained prior to procedure. Did explain to him that his smoking history will place him at high risk of complications. I encouraged him to stop smoking. At the very least encouraged him to
limit his smoking in the perioperative period.
Nonweightbearing right lower extremity
PT OT: Deferred until postoperative setting
DVT prophylaxis: Please hold in preparation for OR
Medical management per primary team
Pain control
Plan: 2 OR today for right hip hemiarthroplasty pending OR availability and medical clearance
[2024-06-11 07:29] LABS: Urine Albumin Trace (Neg - Trace); Urine Bilirubin Negative (Negative); Urine Character Clear (Clear); Urine Color Yellow; Urine Glucose Negative (Negative); Urine Ketone 2+ (Negative); Urine Leukocyte Negative (Negative); Urine Nitrite Negative (Negative); Urine Occult Blood Negative (Negative); Urine Urobilinogen Negative (Neg - 1+)
[2024-06-11] MEDS: SPIRIVA RESPIMAT 2.5 MCG 2 PUFF INH (07:42)
[2024-06-11] MEDS: ADVAIR HFA 115/21 MCG INHALER 2 PUFF INH (07:42)
--- NOTE | 2024-06-11 09:22 | W.PN.HOSP.TC ---
Today's Communication/Plan
-
Medically acceptable risk to proceed with OR today. D/w orthopedics
Assessment / Plan
Assessment / Plan
Assessment:
Right Hip Fracture, traumatic, with underlying osteopenia
- Xr: Mildly displaced right femoral neck fracture with slight foreshortening
- pain control + concurrent bowel regimen
- Ortho evaluation, for right hip hemiarthroplasty
- per [employer]: 'EKG is unremarkable. No personal history of NC, CVA, etc. Patient is at average risk for complications compared to an otherwise healthy individual of his age. Benefits of planned procedure outweigh the potential risks and patient
may proceed to OR without additional pre-op evaluation(s).'
COPD, no acute exacerbation
- Continue fluticasone - salmeterol and Incruse Ellipta
Essential hypertension
- continue ramipril with hold parameters
Hyperlipidemia
- continue Crestor and Zetia
DVT proph: SCDs
Code Status: Full Code
Anticipated Discharge: > 48 hours
Subjective/Interval History
-
Date of Service: June 11, 2024
denies any new complaints at present
Objective Data
-
Labs:
Laboratory Results
06/10/24
22:36
WBC 16.3 H
Hgb 15.1
Hct 44.1
Plt Count 236
Sodium 139
Potassium 4.4
Chloride 105
Carbon Dioxide 22
BUN 23 H
Creatinine 0.8
Glucose 59 L
Calcium 10.4 H
Vital Signs:
Vital Signs
Temp Pulse Resp BP Pulse Ox
98.1 F 71 16 159/86 96
06/11/24 07:35 06/11/24 07:50 06/11/24 07:50 06/11/24 07:35 06/11/24 07:50
I&O
06/10/24 06/11/24 06/12/24
06:59 06:59 06:59
Intake Total 600 / 600
Output Total 1500 / 1500
Balance -900 / -900
Physical Exam
-
General: No Apparent Distress
HEENT: Normocephalic and Atraumatic
Respiratory: Negative Wheezes
Cardiac: Regular Rhythm and S1/S2
GI: Soft and Nontender
Genito-urinary: No Costovertebral Tender
Musculoskeletal: Other (RLE shortened externally rotated)
Neuro: AO x 3
Hematologic / Lymphatic: No Lymphadenopathy
Psych: Calm
Data Reviewed
-
Total Time Spent with Patient (in minutes): 45
Labs: Labs Reviewed by me
[2024-06-11] MEDS: ALTACE 30 MG PO (09:28)
[2024-06-11] MEDS: MIRALAX PO (09:28)
[2024-06-11] MEDS: TYLENOL 1000 MG PO ×2 (09:29→21:26)
[2024-06-11] MEDS: D5/0.9% SODIUM CHLORIDE IV ×2 (09:29→16:32)
[2024-06-11] MEDS: ZETIA 10 MG PO (09:29)
[2024-06-11] MEDS: CRESTOR 40 MG PO (09:29)
[2024-06-11] MEDS: ROXICODONE PO (09:34)
--- NOTE | 2024-06-11 12:28 | CM ---
Met with pt at bedside
Pt reports he lives with his friend Xavier in a 3 story home; no steps to enter, has chair lift to 2nd fl
Independent with ADL's, ambulates with rolling walker, Friend does shopping/cooking/cleaning
DME - rolling walker, shower chair, chair lift
SNF - no past hx
HH - [facility]
PCP - Xavier Salazar
Pharm - [facility]
For OR today to repair R hip Fx
PT/OT evals post op
Plan - TBD pending PT/OT evals post op
[2024-06-11] MEDS: TYLENOL PO (16:32)
--- NOTE | 2024-06-11 16:50 | OR.RPT ---
Operative Report
Operative Report
Anesthesia Type:
Spinal
Operative Indications:
Displaced right femoral neck fracture
Operative Findings :
Same with a small fracture of the greater trochanter noted initially attached to the abductor tendons
Complications:
None
Implants:
Marcela LD fracture cemented hemiarthroplasty bipolar, size 1415 femoral stem, 51 mm bipolar shell, 28 mm head +7
Procedure and Technique:
Right hip hemiarthroplasty
INDICATIONS FOR PROCEDURE:
83-year-old male presented to the emergency department status post mechanical fall at home complains of right hip pain and inability to bear weight. He is subsequently diagnosed with a displaced right femoral neck fracture. Was admitted to the
hospital service. Orthopedics was consulted for further evaluation and treatment. Patient reported that he had sustained mechanical fall while using his walker at home. We discussed both surgical nonsurgical options. After discussion with my
recommendation proceed with a right hip hemiarthroplasty. We discussed risks benefits and alternatives to surgery. We discussed the usual expected perioperative and postoperative course. After discussion written informed consent was obtained. We
did specifically discussed the risks of infection given his current smoking as well as the risks of possible leg length discrepancy
OPERATIVE PROCEDURE:
Patient was seen and identified in the preoperative holding area. Operative extremity was marked. Patient was taken to the operating room and anesthesia was administered by the anesthesia providers. Patient was then placed in a lateral decubitus
position with the use of a hook bag. All bony prominences were well-padded. Operative extremity was then prepped and draped in normal sterile fashion. Timeout was performed again identifying the correct operative extremity. Preoperative
antibiotics were addressed. Standard posterior approach to the hip was taken. Sharp dissection was carried through skin and subcutaneous tissues and deep fascial layer. Hemostasis was achieved with electrocautery. Hip was then placed on slight
internal rotation to place the external rotators on stretch. The external rotators were extremely macerated and unable to hold a stitch. There was noted to be a small about 2 cm x 2 cm fracture of the greater trochanter attached to the abductor
tendons. Piriformis was identified and a Cobra retractor was then placed under the gluteus medius and minimus. Piriformis and short external rotators were taken down and tagged. A T capsulotomy was then performed and capsular leaflets were also
tagged. The fracture was identified and a freshen up cut was performed. The femoral head was then removed and sized. Appropriately sized ball on a stick was then placed into the acetabulum and felt to have appropriate suction fit. Attention was
then turned to the proximal femur where soft tissue remnants were removed from the piriformis fossa. Remnant neck was removed with the use of a cookie cutter. Canal finder was then placed in addition to lateralizing reamer. Stepwise broaching was
then performed to the appropriate size. Implants were then trialed and found to have appropriate stability in deep flexion, internal rotation, shuck and adduction. Implants were then removed and canal was copiously irrigated normal saline
solution. Cement restrictor was then placed. Pressurized cement was then placed into the femoral canal and appropriately sized femoral stem was then placed in the appropriate version. After cement had hardened, final implants were then placed and
the hip was again taken through range of motion and found to be quite stable. Satisfied with the extent of surgery, wound was copiously irrigated with normal saline solution and a Betadine solution. Decision was made to repair the small greater
trochanter fracture with a 5.5 mm corkscrew tendon. [place] was placed in the fracture bed and 2 sutures were passed through the musculotendinous junction and around the fracture. This was tied down and good fixation was achieved. The capsule, and
piriformis were then repaired through osseous tunnels into the nonavulsed portion of the greater trochanter. Wound was then closed in a layered fashion utilizing 0 Vicryl for deep fascial layer, 2-0 Vicryl for subcutaneous layer and gudelia for
skin. Aquacel dressing was then placed. Anesthesia was reversed and patient was taken to PACU in a stable condition. Postoperative plans will include weightbearing to the patient's tolerance in the operative extremity with abduction precautions.
Posterior hip precautions will be advised. Recommend DVT prophylaxis consisting of renally dosed Lovenox daily for 28 days unless patient is already on baseline anticoagulation. Will plan to see patient back in 2 weeks for postoperative evaluation
with planned removal of gudelia.
Disposition:
PACU, stable condition
[2024-06-11] MEDS: NSS 1000 IV (21:21)
[2024-06-11] MEDS: COLACE 100 MG PO (21:26)
[2024-06-11] MEDS: ADVAIR HFA 115/21 MCG INHALER INH (22:44)
[2024-06-11] MEDS: ANCEF 5 IV (23:52)
[2024-06-12] VITALS (9 sets, daily range): BP systolic 93–122; BP diastolic 48–70; PULSE 100; O2SAT 98
[2024-06-12] MEDS: D5/0.9% SODIUM CHLORIDE IV (02:28)
[2024-06-12] MEDS: ROXICODONE 5 MG PO ×2 (03:09→20:24)
[2024-06-12] MEDS: FLOMAX 0.4 MG PO (03:42)
[2024-06-12 06:39] LABS: Hematocrit 34.3 % (39.0-52.0); Hemoglobin 11.7 g/dL (13.0-18.0); Mean Corp Hgb Conc. 34.1 g/dL (33.0-37.0); Mean Corpuscular Hgb 31.4 pg (27.0-31.0); Mean Platelet Volume 10.3 fL (7.4-10.4); Platelet Count 149 10^3/uL (130-400); Red Blood Cell Count 3.73 10^6/uL (4.70-6.10); Red Cell Dist. Width 14.2 % (11.5-14.5); White Blood Cell Count 13.9 10^3/uL (4.8-10.8)
[2024-06-12 07:00] LABS: Blood Urea Nitrogen 21 mg/dl (9-20); Calcium 9.2 mg/dl (8.4-10.2); Carbon Dioxide 22 mmol/L (22-30); Chloride 104 mmol/L (98-107); Estimated Creatinine Clearance 50 ml/min; Glucose 133 mg/dl (70-99); Potassium 4.9 mmol/L (3.5-5.1); Sodium 136 mmol/L (135-145); eGFR > 60.00
[2024-06-12] MEDS: SPIRIVA RESPIMAT 2.5 MCG 2 PUFF INH (07:22)
[2024-06-12] MEDS: ADVAIR HFA 115/21 MCG INHALER 2 PUFF INH ×2 (07:22→20:16)
[2024-06-12] MEDS: NSS IV (08:53)
[2024-06-12] MEDS: ZETIA 10 MG PO (08:53)
[2024-06-12] MEDS: TYLENOL 1000 MG PO ×3 (08:53→20:24)
[2024-06-12] MEDS: CRESTOR 40 MG PO (08:53)
[2024-06-12] MEDS: ALTACE 30 MG PO (08:53)
[2024-06-12] MEDS: ANCEF 5 IV (08:53)
[2024-06-12] MEDS: MIRALAX PO (08:54)
[2024-06-12] MEDS: COLACE 100 MG PO ×2 (08:54→20:24)
[2024-06-12] MEDS: LOVENOX 40 MG SC (08:54)
--- NOTE | 2024-06-12 09:26 | W.PN.ORTHO ---
Today's Communication / Plan
-
83 yo M POD 1 s/p R hip jose roberto arthroplasty, ORIF greater trochanter tip fracture
WBAT RLE
Abduction precautions, posterior hip precautions
PT/OT
Pain control
DVT ppx: rec lovenox X 28 days renally dosed
Medical management per primary team
Follow up outpatient in 2-3 weeks for repeat eval with removal of gudelia
Subjective
.
.:
Patient resting comfortably in chair. Able to work with PT with mild discomfort hip.
Vital Signs and Labs
.
Vital Signs and Labs:
Lab Results
06/12/24 05:41
06/12/24 05:41
Temp Pulse Resp BP Pulse Ox
98.2 F 85 17 122/63 96
06/12/24 07:50 06/12/24 07:50 06/12/24 07:50 06/12/24 08:53 06/12/24 07:50
Physical Exam
-
MSK RLE
Dressing mild bloody drainage
+ehl/fhl, ankle df/pf
approximately equal leg lengths
--- NOTE | 2024-06-12 13:47 | CM ---
Case management following for discharge planning
Chart reviewed
PT/OT recs - SNF
Spoke with pt about SNF/rehab - pt wishes to go home. Refused to discuss rehab. Left option list with pt
Spoke with pts partner Xavier - Xavier aware of pts wishes. Requesting update from physician. TT sent to Dr Duran.
Partner open to home with VN - requesting [facility] - if pt is able to ambulate in some capacity with rolling walker
Encouraged partner to be present when pt seen by PT/OT if possible
Plan - SNF vs VN when medically stable
--- NOTE | 2024-06-12 17:23 | W.PN.HOSP.TC ---
Today's Communication/Plan
-
dc planning to a SNF
Assessment / Plan
Assessment / Plan
Assessment:
Right Hip Fracture, traumatic, with underlying osteopenia
- Xr: Mildly displaced right femoral neck fracture with slight foreshortening
- s/p R hip jose roberto arthroplasty, ORIF greater trochanter tip fracture 06/11
- continue pain control
- continue Lovenox for DVT ppx
- WBAT RLE, Abduction precautions, posterior hip precautions PT/OT
- ortho f/u in 2-3 weeks for repeat eval with removal of gudelia
COPD, no acute exacerbation
- Continue fluticasone - salmeterol and Incruse Ellipta
Essential hypertension
- continue ramipril with hold parameters
Hyperlipidemia
- continue Crestor and Zetia
DVT proph: SCDs
Code Status: Full Code
Anticipated Discharge: 24 - 48 hours
Subjective/Interval History
-
Date of Service: June 12, 2024
resting comfortably, no complaints
Objective Data
-
Labs:
Laboratory Results
06/12/24
05:41
WBC 13.9 H
Hgb 11.7 L D
Hct 34.3 L
Plt Count 149 D
Sodium 136
Potassium 4.9
Chloride 104
Carbon Dioxide 22
BUN 21 H
Creatinine 0.8
Glucose 133 H
Calcium 9.2
Vital Signs:
Vital Signs
Temp Pulse Resp BP Pulse Ox
97.5 F 85 16 98/70 96
06/12/24 15:23 06/12/24 15:23 06/12/24 15:23 06/12/24 15:23 06/12/24 15:23
I&O
06/11/24 06/12/24 06/13/24
06:59 06:59 06:59
Intake Total 600 / 600 1300 / 1300 780 / 780
Output Total 1500 / 1500 750 / 750
Balance -900 / -900 550 / 550 780 / 780
Physical Exam
-
General: No Apparent Distress
HEENT: Normocephalic and Atraumatic
Respiratory: Negative Wheezes
Cardiac: Regular Rhythm and S1/S2
GI: Soft and Nontender
Musculoskeletal: No Edema
Neuro: AO x 3
Hematologic / Lymphatic: No Lymphadenopathy
Psych: Calm
Data Reviewed
-
Total Time Spent with Patient (in minutes): 41
Labs: Labs Reviewed by me
[2024-06-13] VITALS (7 sets, daily range): BP systolic 74–114; BP diastolic 43–66
[2024-06-13] MEDS: SPIRIVA RESPIMAT 2.5 MCG 2 PUFF INH (07:51)
[2024-06-13] MEDS: ADVAIR HFA 115/21 MCG INHALER 2 PUFF INH ×2 (07:51→20:33)
[2024-06-13] MEDS: COLACE 100 MG PO ×2 (08:02→21:26)
[2024-06-13] MEDS: ROXICODONE 5 MG PO ×2 (08:02→21:26)
[2024-06-13] MEDS: LOVENOX 40 MG SC (08:03)
[2024-06-13] MEDS: MIRALAX 17 GRAMS PO (08:03)
[2024-06-13] MEDS: CRESTOR 40 MG PO (08:03)
[2024-06-13] MEDS: ZETIA 10 MG PO (08:03)
[2024-06-13] MEDS: TYLENOL 1000 MG PO ×3 (08:04→21:26)
[2024-06-13 08:21] LABS: Hematocrit 31.7 % (39.0-52.0); Hemoglobin 10.8 g/dL (13.0-18.0); Mean Corp Hgb Conc. 34.1 g/dL (33.0-37.0); Mean Corpuscular Hgb 31.4 pg (27.0-31.0); Mean Corpuscular Volume 92.2 fL (80.0-94.0); Mean Platelet Volume 10.9 fL (7.4-10.4); Platelet Count 149 10^3/uL (130-400); Red Blood Cell Count 3.44 10^6/uL (4.70-6.10); Red Cell Dist. Width 14.6 % (11.5-14.5); White Blood Cell Count 9.6 10^3/uL (4.8-10.8)
[2024-06-13 08:25] LABS: Blood Urea Nitrogen 33 mg/dl (9-20); Calcium 9.4 mg/dl (8.4-10.2); Carbon Dioxide 23 mmol/L (22-30); Chloride 106 mmol/L (98-107); Estimated Creatinine Clearance 40 ml/min; Glucose 105 mg/dl (70-99); Potassium 4.5 mmol/L (3.5-5.1); Sodium 139 mmol/L (135-145); eGFR > 60.00
--- NOTE | 2024-06-13 08:28 | W.PN.HOSP.TC ---
Today's Communication/Plan
-
IV Iron
DC Planning to a SNF
Assessment / Plan
Assessment / Plan
Assessment:
Right Hip Fracture, traumatic, with underlying osteopenia
- XR: Mildly displaced right femoral neck fracture with slight foreshortening
- s/p R hip jose roberto arthroplasty, ORIF greater trochanter tip fracture 06/11
- continue pain control
- continue Lovenox for DVT ppx
- WBAT RLE, Abduction precautions, posterior hip precautions PT/OT
- ortho f/u in 2-3 weeks for repeat eval with removal of gudelia
Acute blood loss anemia, operative blood losses
- follow Hb
- low iron studies; start IV Ferrlecit x 2 doses
COPD, no acute exacerbation
- Continue fluticasone - salmeterol and Incruse Ellipta
Essential hypertension
- continue ramipril with hold parameters
Hyperlipidemia
- continue Crestor and Zetia
DVT proph: Lovenox
Code Status: Full Code
Dispo: SNF recommended, CM aware to send referrals.
Anticipated Discharge: > 48 hours
Subjective/Interval History
-
Date of Service: June 13, 2024
no new or acute complaints
Agreeable to SNF
Objective Data
-
Labs:
Laboratory Results
06/13/24
07:40
WBC 9.6
Hgb 10.8 L
Hct 31.7 L
Plt Count 149
Sodium 139
Potassium 4.5
Chloride 106
Carbon Dioxide 23
BUN 33 H
Creatinine 1.0
Glucose 105 H
Calcium 9.4
Vital Signs:
Vital Signs
Temp Pulse Resp BP Pulse Ox
98.1 F 91 17 102/56 93
06/13/24 03:00 06/13/24 07:55 06/13/24 07:55 06/13/24 03:00 06/13/24 07:55
I&O
06/12/24 06/13/24 06/14/24
06:59 06:59 06:59
Intake Total 1300 / 1300 1260 / 1260
Output Total 750 / 750
Balance 550 / 550 1260 / 1260
Physical Exam
-
General: No Apparent Distress
HEENT: Normocephalic and Atraumatic
Respiratory: Negative Wheezes
Cardiac: Regular Rhythm and S1/S2
GI: Soft and Nontender
Genito-urinary: No Costovertebral Tender
Neuro: AO x 3
Psych: Calm
Data Reviewed
-
Total Time Spent with Patient (in minutes): 41
Labs: Labs Reviewed by me
[2024-06-13 08:44] LABS: Iron < 20 ug/dl (49-181)
[2024-06-13 08:53] LABS: Total Iron Binding Capacity 193 ug/dl (261-462)
[2024-06-13] MEDS: ALTACE PO (09:39)
[2024-06-13 09:51] LABS: Folate 14.3 ng/ml (2.76-20); Vitamin B12 560 pg/ml (239-931)
[2024-06-13] MEDS: NSS 1000 IV (12:35)
[2024-06-13] MEDS: FERRLECIT 110 MG IV (14:16)
--- NOTE | 2024-06-13 15:05 | PTCARENOTE ---
Patient's BP 76/46 and HR 96 at this time while laying. Taken with manual cuff.
--- NOTE | 2024-06-13 15:05 | PTCARENOTE ---
Patients BP at 1139 76/46. HR 96. Taken manually while laying. Asymptomatic. Dr. Renee Sharpe notified. Gave order for NSS at 70 ml/hr for maintenance. Oral fluids also encouraged. BP at 1505 103/53. HR 77.
--- NOTE | 2024-06-13 15:50 | CM ---
Reviewed the chart notes and spoke with the patient at the bedside. Patient requests referral be sent to [facility]. Referral sent. CM continues to be available to patient/family and is monitoring medical plan for needs at discharge.
Plan: Discharge to Acute rehab vs SNF.
--- NOTE | 2024-06-13 23:06 | PTCARENOTE ---
Received pt from previous RN, pt resting in bed, VSS stable awake but fell back to sleep. Bed in lowest position call garcia at side
[2024-06-14] VITALS (9 sets, daily range): BP systolic 94–125; BP diastolic 51–62; PULSE 96; O2SAT 99
[2024-06-14] MEDS: ROXICODONE 5 MG PO ×2 (03:59→17:03)
[2024-06-14] MEDS: FLOMAX 0.4 MG PO (03:59)
--- NOTE | 2024-06-14 04:04 | PTCARENOTE ---
pt ICP due to no void and unable to use urinal. Pt not steady to transfer to [facility]. Pt reports he can only urinate sitting down. Pt tolerated ICP resting in bed call garcia within reach
[2024-06-14 04:54] LABS: Hematocrit 29.1 % (39.0-52.0); Hemoglobin 9.9 g/dL (13.0-18.0); Mean Corpuscular Hgb 30.8 pg (27.0-31.0); Mean Corpuscular Volume 90.7 fL (80.0-94.0); Mean Platelet Volume 10.6 fL (7.4-10.4); Platelet Count 172 10^3/uL (130-400); Red Blood Cell Count 3.21 10^6/uL (4.70-6.10); Red Cell Dist. Width 14.6 % (11.5-14.5); White Blood Cell Count 8.5 10^3/uL (4.8-10.8)
[2024-06-14 05:13] LABS: Blood Urea Nitrogen 33 mg/dl (9-20); Carbon Dioxide 23 mmol/L (22-30); Chloride 106 mmol/L (98-107); Estimated Creatinine Clearance 45 ml/min; Glucose 100 mg/dl (70-99); Potassium 4.2 mmol/L (3.5-5.1); Sodium 139 mmol/L (135-145); eGFR > 60.00
[2024-06-14] MEDS: SPIRIVA RESPIMAT 2.5 MCG 2 PUFF INH (07:53)
[2024-06-14] MEDS: ADVAIR HFA 115/21 MCG INHALER 2 PUFF INH ×2 (07:53→20:42)
[2024-06-14] MEDS: ALTACE PO (08:31)
[2024-06-14] MEDS: TYLENOL 1000 MG PO ×3 (08:31→21:05)
[2024-06-14] MEDS: COLACE 100 MG PO ×2 (08:31→21:05)
[2024-06-14] MEDS: CRESTOR 40 MG PO (08:31)
[2024-06-14] MEDS: LOVENOX 40 MG SC (08:31)
[2024-06-14] MEDS: ZETIA 10 MG PO (08:31)
[2024-06-14] MEDS: MIRALAX 17 GRAMS PO (08:32)
--- NOTE | 2024-06-14 13:24 | W.PN.HOSP.TC ---
Today's Communication/Plan
-
1 unit PRBC
Panda placed
await PMR eval for Barber placement
Assessment / Plan
Assessment / Plan
Assessment:
Right Hip Fracture, traumatic, with underlying osteopenia
- XR: Mildly displaced right femoral neck fracture with slight foreshortening
- s/p R hip jose roberto arthroplasty, ORIF greater trochanter tip fracture 06/11
- continue pain control
- continue Lovenox for DVT ppx
- WBAT RLE, Abduction precautions, posterior hip precautions PT/OT
- ortho f/u in 2-3 weeks for repeat eval with removal of gudelia
Acute blood loss anemia, operative blood losses
- follow Hb
- 1 unit PRBC today
- continue IV iron
Acute urinary retention post-op
- has required straight cath x 4
- Panda placed today
COPD, no acute exacerbation
- Continue fluticasone - salmeterol and Incruse Ellipta
Essential hypertension
- continue ramipril with hold parameters
Hyperlipidemia
- continue Crestor and Zetia
DVT proph: Lovenox
Code Status: Full Code
Dispo: Acute rehab recommended, pending PMR eval.
Anticipated Discharge: 24 - 48 hours
Subjective/Interval History
-
Date of Service: June 14, 2024
s/p 4 straight caths per RN and later panda placed
patient denies any new complaints
Objective Data
-
Labs:
Laboratory Results
06/14/24
04:18
WBC 8.5
Hgb 9.9 L
Hct 29.1 L
Plt Count 172
Sodium 139
Potassium 4.2
Chloride 106
Carbon Dioxide 23
BUN 33 H
Creatinine 0.9
Glucose 100 H
Calcium 9.0
Vital Signs:
Vital Signs
Temp Pulse Resp BP Pulse Ox
97.9 F 86 18 112/51 95
06/14/24 11:10 06/14/24 11:10 06/14/24 11:10 06/14/24 11:10 06/14/24 11:10
I&O
06/13/24 06/14/24 06/15/24
06:59 06:59 06:59
Intake Total 1260 / 1260 1940 / 1940 0 / 0
Output Total 550 / 550
Balance 1260 / 1260 1390 / 1390 0 / 0
Physical Exam
-
General: No Apparent Distress
HEENT: Normocephalic and Atraumatic
Respiratory: Negative Wheezes
Cardiac: Regular Rhythm
GI: Soft and Nontender
Genito-urinary: Panda
Neuro: AO x 3
Hematologic / Lymphatic: No Lymphadenopathy
Psych: Calm
Data Reviewed
-
Total Time Spent with Patient (in minutes): 42
Labs: Labs Reviewed by me
[2024-06-14] MEDS: FERRLECIT 110 MG IV (14:02)
[2024-06-15] VITALS (8 sets, daily range): BP systolic 95–163; BP diastolic 52–81; PULSE 85–90; O2SAT 95
--- NOTE | 2024-06-15 06:15 | PTCARENOTE ---
Notified Dr. Frost of dressing change to right hip d/t excess drainage.
[2024-06-15 07:00] LABS: Hematocrit 30.2 % (39.0-52.0); Hemoglobin 10.2 g/dL (13.0-18.0); Mean Corp Hgb Conc. 33.8 g/dL (33.0-37.0); Mean Corpuscular Hgb 30.8 pg (27.0-31.0); Mean Corpuscular Volume 91.2 fL (80.0-94.0); Mean Platelet Volume 10.6 fL (7.4-10.4); Platelet Count 179 10^3/uL (130-400); Red Blood Cell Count 3.31 10^6/uL (4.70-6.10); Red Cell Dist. Width 14.6 % (11.5-14.5); White Blood Cell Count 8.2 10^3/uL (4.8-10.8)
[2024-06-15 07:35] LABS: Blood Urea Nitrogen 27 mg/dl (9-20); Calcium 9.2 mg/dl (8.4-10.2); Carbon Dioxide 26 mmol/L (22-30); Chloride 107 mmol/L (98-107); Estimated Creatinine Clearance 50 ml/min; Glucose 94 mg/dl (70-99); Potassium 5.1 mmol/L (3.5-5.1); Sodium 139 mmol/L (135-145); eGFR > 60.00
[2024-06-15] MEDS: SPIRIVA RESPIMAT 2.5 MCG 2 PUFF INH (07:58)
[2024-06-15] MEDS: ADVAIR HFA 115/21 MCG INHALER 2 PUFF INH ×2 (07:58→19:40)
[2024-06-15] MEDS: ALTACE 30 MG PO (08:03)
[2024-06-15] MEDS: CRESTOR 40 MG PO (08:04)
[2024-06-15] MEDS: MIRALAX 17 GRAMS PO (08:04)
[2024-06-15] MEDS: TYLENOL 1000 MG PO ×3 (08:04→21:41)
[2024-06-15] MEDS: ZETIA 10 MG PO (08:04)
[2024-06-15] MEDS: LOVENOX 40 MG SC (08:04)
[2024-06-15] MEDS: COLACE 100 MG PO ×2 (08:04→20:20)
--- NOTE | 2024-06-15 08:09 | W.PN.HOSP.TC ---
Today's Communication/Plan
-
dispo planning
Assessment / Plan
Assessment / Plan
Assessment:
Right Hip Fracture, traumatic, with underlying osteopenia
- XR: Mildly displaced right femoral neck fracture with slight foreshortening
- s/p R hip jose roberto arthroplasty, ORIF greater trochanter tip fracture 06/11
- continue pain control
- continue Lovenox for DVT ppx
- WBAT RLE, Abduction precautions, posterior hip precautions PT/OT
- ortho f/u in 2-3 weeks for repeat eval with removal of gudelia
- awaiting physiatry eval
Acute blood loss anemia, operative blood losses
- follow Hb
- 1 unit PRBC today
- continue IV iron
Acute urinary retention post-op
- has required straight cath x 4
- Coyne placed today
COPD, no acute exacerbation
- Continue fluticasone - salmeterol and Incruse Ellipta
Essential hypertension
- continue ramipril with hold parameters
Hyperlipidemia
- continue Crestor and Zetia
DVT proph: Lovenox
Code Status: Full Code
Dispo: Acute rehab recommended, pending PMR eval.
Anticipated Discharge: Within 24 hours
Subjective/Interval History
-
Date of Service: June 15, 2024
pain controlled
no chest pain
feeling well
Objective Data
-
Labs:
Laboratory Results
06/15/24
04:41
WBC 8.2
Hgb 10.2 L
Hct 30.2 L
Plt Count 179
Sodium 139
Potassium 5.1
Chloride 107
Carbon Dioxide 26
BUN 27 H
Creatinine 0.8
Glucose 94
Calcium 9.2
Vital Signs:
Vital Signs
Temp Pulse Resp BP Pulse Ox
98.8 F 95 18 163/80 100
06/15/24 07:21 06/15/24 08:03 06/15/24 08:03 06/15/24 07:21 06/15/24 08:03
I&O
06/14/24 06/15/24 06/16/24
06:59 06:59 06:59
Intake Total 1940 / 1940 1600 / 1600
Output Total 550 / 550 975 / 975
Balance 1390 / 1390 625 / 625
Review of Systems
-
History Source: Patient
All other systems: Reviewed and negative
Physical Exam
-
General: No Apparent Distress
HEENT: PERRLA
Respiratory: Clear to Auscultation; Negative Wheezes
Cardiac: Regular Rhythm and S1/S2
GI: Soft and Nontender
Musculoskeletal: No Edema
Skin: Warm and Dry; Negative Rash
Neuro: AO x 3
Psych: Calm
Data Reviewed
-
Diagnostic Radiology: Report Reviewed by me
Labs: Labs Reviewed by me
--- NOTE | 2024-06-15 09:00 | CON.MD ---
Documented by User: Radha Arciniega PA-C 06/15/24 18:32
Consultation - Medical
-
Referring Provider: Luzma Honeycutt
Chief Complaint:� Ambulatory Dysfunction, Right Hip ORIF
�
History of Present Illness:�Patient is an 83 year old Male with PMH of ( COPD, history of CVA, CA, hypertension and spinal stenosis) who presents to ED on 06/10/2024 complaining of Right hip pain s/p fall at home. Patient states that he tripped
over his rollator and fell onto his R side. he noted immediate pain in the R hip at that time. He had a similar fall about 8 weeks ago - also onto his R hip. Imaging at that time was unremarkable. imaging in the ED showed Right hip fracture. He
underwent right hemiarthroplasty with Dr. Frost on 06/11. patient received 1 unit of PRBC today
�
Past Medical History:�COPD, hypertension, spinal stenosis, s/p cervical and thoracic lami, CVA, CA, peripheral neuropathy
Procedure History:� right hip ORIF-05/2024, cervical pillow sling laminectomy, thoracic laminectomy, ablation to spine
Family History:�Dad�cancer, Mom- heart disease,
�
Social History:�
Functional Level Premorbidly: Ambulates with a rollator, assisted with IADLs, independent with ADL baseline
Functional Level Currently:�Transfer�min assist, ambulates to 1025 feet with mod assist RW.
�
Tobacco:�smokes
Alcohol:�yes
Drug use:�Denies�
�
Lives with:�Friend
24-hour assistance available:�
Number of floors:3 story house-�multi level
# steps to enter:�stairglide to 2nd floor
Driving:�no
Occupation: �retired
�
Allergies:�
Allergy/AdvReac Type Severity Reaction Status Date / Time
No Known Allergies Allergy Verified 10/10/23 22:34
Review of system:
Constitutional: (x) Normal _
Eye: (x) Normal _
Ear/Nose/Throat: (x) Normal _
Respiratory: (x) Normal _
Cardiovascular: (x)
Gastrointestinal: (x) Normal _
Genitourinary: (x) urinary retention post op
Musculoskeletal: (x) right hip orif. h/o cervical thoracic lami
Integumentary: (x) Normal _
Neurologic: (x)
Psychiatric: (x) Normal _
Endocrine: (x) Normal _
Hematologic/Lymphatic:
Allergic/Immunologic: (x) Normal _
�
Medications:�
Active Current Visit Medication List
Category Date Time Status
Acetaminophen [Tylenol] Med 06/11/24 08:00 Active
1,000 mg PO TID
Docusate Sodium [Colace] Med 06/11/24 20:00 Active
100 mg PO BID
Enoxaparin Sodium [Lovenox] Med 06/12/24 08:00 Active
40 mg SC DAILY
Ezetimibe [Zetia] Med 06/11/24 08:00 Active
10 mg PO DAILY
Flush (0.9% Sodium Chloride) [Flush (Nss)] Med 06/10/24 23:00 Active
See Dose Instructions IV PER PROTOCOL
Fluticasone/Salmeterol 115/21 [Advair Hfa 115/21 Mcg Med 06/11/24 08:00 Active
Inhaler]
2 puff INH R BID
HYDROmorphone [Dilaudid] Med 06/11/24 00:23 Active
0.25 mg IV Q3HPRN PRN
Mag Hydrox/Al Hydrox/Simeth [Maalox] Med 06/11/24 19:16 Active
30 ml PO Q4HPRN PRN
Ondansetron Injectable [Zofran] Med 06/11/24 19:16 Active
4 mg IV Q6HPRN PRN
Oxycodone [Roxicodone] Med 06/11/24 00:23 Active
10 mg PO Q4HPRN PRN
Oxycodone [Roxicodone] Med 06/11/24 00:23 Active
5 mg PO Q4HPRN PRN
Polyethylene Glycol Powder [Miralax] Med 06/11/24 08:00 Active
17 grams PO DAILY
Ramipril [Altace] Med 06/11/24 08:00 Active
30 mg PO DAILY
Rosuvastatin Calcium [Crestor] Med 06/11/24 08:00 Active
40 mg PO DAILY
Tamsulosin [Flomax] Med 06/11/24 00:23 Active
0.4 mg PO DAILYPRN PRN
Tiotropium Elbert 2.5 Mcg [Spiriva Respimat 2.5 Mcg] Med 06/11/24 08:00 Active
2 puff INH R DAILY
Vitals:
Temp Pulse Resp BP Pulse Ox
98.0 F 66 16 134/60 97
06/15/24 03:09 06/15/24 03:09 06/15/24 03:09 06/15/24 03:09 06/15/24 03:09
Height 5 ft
Actual Weight 62.324 kg
Body Mass Index (BMI) 26.8
Physical Exam:�
General Appearance/Observation: Well-developed, well-nourished male in no apparent distress.�
Pain/Comfort Assessment: Denies�
Mood/Affect: Appropriate, pleasant
�
Integumentary/Operative Site:�
�� Pressure Ulcer Evaluation: absent over heels.�
�
Eyes: Conjunctiva/Lids: normal���� Pupils: pupils equal round
Ears/Nose/Throat: oral mucosa moist,� throat clear.������������ Lips/Teeth/Gums: normal�
Cardiovascular: Heart: regular, no murmur�
Pulses: dorsalis pedis 2+ bilaterally�
Respiratory: Respiratory Effort/Chest Expansion: normal������� Auscultation: Clear to auscultation bilaterally�
Gastrointestinal: abdomen not tender, no distension, normal abdominal bowel sounds
Genitourinary: panda
Extremities:�Edema: right thigh�Cyanosis: None�Trophic�changes: None
�
Neurology Exam:
Orientation: Alert, Oriented to self, Time, Place�
Memory: Intact for recent medical concerns
Comprehension: Intact
Two step command: Intact
Cranial Nerves:
�� CNII:�Pupillary light reflex: Intact����
�� CN III, IV, : Extraocular muscles: Intact�
�� CN V:�Facial Sensation�at�Forehead: Intact,�Maxilla: Intact,�Mandible: Intact
�� CN VII:�Facial movement: Symmetric
�� CN VIII:�Hearing: Normal
�� CN IX/X:�Speech & swallow: Normal,�Position of Uvula: Midline
�� CN XI:�Shoulder shrug: intact
��
Sensory:
�� Light touch: Intact in bilateral upper and lower extremities
��
Reflexes:
�� Biceps: 2/4 bilaterally
�� Brachioradialis: 2/4 bilaterally
�� Triceps: 1/4 bilaterally
�� Patellar: 1/4 bilaterally
�� Achilles: absent bilaterally
�� Babinski: up going bilaterally
�� Clonus: None
�� Charlie: Negative bilaterally�
Cerebellar: Dysmetria/Ataxia: NT
Musculoskeletal: Motor: (Manual muscle scale 0-5)�
Muscle SA EF WE EE FF FA HF KE DF EHL PF
Right� 5 5 5 2 2 5 5 5
Left 5 5 5 5 5 5 5 5
�
Tone: Normal in all extremities�
Range of Motion: Passively within normal limits in all extremities�, right hip not tested due to surgery
Labs:
Labs
WBC 8.2 10^3/uL (4.8-10.8) 06/15/24 04:41
RBC 3.31 10^6/uL (4.70-6.10) L 06/15/24 04:41
Hgb 10.2 g/dL (13.0-18.0) L 06/15/24 04:41
Hct 30.2 % (39.0-52.0) L 06/15/24 04:41
MCV 91.2 fL (80.0-94.0) 06/15/24 04:41
MCH 30.8 pg (27.0-31.0) 06/15/24 04:41
MCHC 33.8 g/dL (33.0-37.0) 06/15/24 04:41
RDW 14.6 % (11.5-14.5) H 06/15/24 04:41
Plt Count 179 10^3/uL (130-400) 06/15/24 04:41
MPV 10.6 fL (7.4-10.4) H 06/15/24 04:41
Sodium 139 mmol/L (135-145) 06/15/24 04:41
Potassium 5.1 mmol/L (3.5-5.1) 06/15/24 04:41
Chloride 107 mmol/L (98-107) 06/15/24 04:41
Carbon Dioxide 26 mmol/L (22-30) 06/15/24 04:41
BUN 27 mg/dl (9-20) H 06/15/24 04:41
Creatinine 0.8 mg/dL (0.7-1.3) 06/15/24 04:41
Estimated Creat Clear 50 ml/min 06/15/24 04:41
eGFR > 60.00 06/15/24 04:41
Glucose 94 mg/dl (70-99) 06/15/24 04:41
Calcium 9.2 mg/dl (8.4-10.2) 06/15/24 04:41
Iron < 20 ug/dl (49-181) L 06/13/24 07:40
TIBC 193 ug/dl (261-462) L 06/13/24 07:40
% Saturation % (20-50) 06/13/24 07:40
Ferritin 157.0 ng/ml (17.9-464.0) 06/13/24 07:40
Vitamin B12 560 pg/ml (239-931) 06/13/24 07:40
Folate 14.3 ng/ml (2.76-20) 06/13/24 07:40
Urine Color Yellow 06/11/24 05:27
Urine Clarity Clear (Clear) 06/11/24 05:27
Urine pH 5.0 (5.0-9.0) 06/11/24 05:27
Ur Specific Wana 1.020 (<1.030) 06/11/24 05:27
Urine Ketones 2+ (Negative) A 06/11/24 05:27
Ur Occult Blood Reflex Negative (Negative) 06/11/24 05:27
Urine Nitrite (Reflex) Negative (Negative) 06/11/24 05:27
Urine Bilirubin Negative (Negative) 06/11/24 05:27
Urine Urobilinogen Negative (Neg - 1+) 06/11/24 05:27
Leukocyte Esterase Rfl Negative (Negative) 06/11/24 05:27
Urine Glucose Negative (Negative) 06/11/24 05:27
Urine Albumin (Reflex) Trace (Neg - Trace) 06/11/24 05:27
Blood Type O POS 06/14/24 09:00
Antibody Screen Negative (Negative) 06/14/24 09:00
Crossmatch IS Only See Detail 06/14/24 09:00
Diagnostic Results:�as per HPI�
Assessment: Patient is an 83 year old Male with PMH of ( COPD, history of CVA, CA, hypertension and spinal stenosis) who presents to ED on 06/10/2024. Found to have right hip fracture on imaging. Now s/p right hemiarthroplasty with Dr. Frost
on 06/11.
Plan�
PT/OT to increase independence with ADLs, improve balance, coordination, endurance, strength, mobility, community reintegration, decreased burden of care on others and family education.�
Ambulatory Dysfunction due to hip fracture: Cont PT/OT
Right Hip Fracture: traumatic, with underlying osteopenia:s/p R hip jose roberto arthroplasty, ORIF greater trochanter tip fracture 06/[address] Frost. Recommends Lovenox x 28 days post-op renally dosed.
- XR: Mildly displaced right femoral neck fracture with slight foreshortening
-WBAT RLE, Abduction precautions, posterior hip precautions PT/OT
- Ortho f/u in 2-3 weeks for repeat evaluation with removal of gudelia
Acute anemia: Post -op blood loss. 1 unit PRBC today. Continue IV iron. Monitor Hgb
HTN: Ramipril qd
HLD: Rosuvastatin and Zetia
Acute urinary retention post-op: required straight cath x 4. Panda placed today.
COPD, no acute exacerbation. Continue fluticasone - salmeterol and Incruse Ellipta
Essential hypertension: continue ramipril with hold parameters
Hyperlipidemia: continue Crestor and Zetia
Psych: Psychology consult.� Monitor mood, adjust as needed.�
Pain: acetaminophen as needed, 05 mg, 10 mg every 4 hours as needed, Dilaudid 0.25 mg IV every 3 hours as needed
Nausea: Zofran 4 mg IV every 6 hours as needed
Bladder: Panda. Once in rehab will have trial of panda removal with bladder scan, time voids, straight cath. Change Flomax to QPM standard if patient had urinary issues prior to surgery..
Bowel: Colace and Senna, PRN Bisacodyl
DVT Prophylaxis: Mechanical and Lovenox x 28 days per ortho
Pulmonary: Incentive spirometry�
Safety: Continue to reinforce assistance with all transfers.�
Code Status:� Full code
Dispo�(date/plan/equipment needs): Home with family care.� Social history reviewed.�
Functional and Medical Goals:�Modified Independent with ADL�s, ambulation, transfers�
Discharge Destination:� Acute inpatient rehabilitation
Summary Recommendations: Patient with ambulatory dysfunction status post right hip hemiarthroplasty on 06/11, would benefit from acute inpatient rehabilitation for PT/OT to increase independence with ADLs, improve balance, coordination, endurance,
strength, mobility, community reintegration, decreased burden of care on others and family education.�
Right Hip Fracture: traumatic, with underlying osteopenia:s/p R hip jose roberto arthroplasty, ORIF greater trochanter tip fracture 06/[address] Frost. Recommends Lovenox x 28 days post-op renally dosed.
- XR: Mildly displaced right femoral neck fracture with slight foreshortening
-WBAT RLE, Abduction precautions, posterior hip precautions PT/OT
- Ortho f/u in 2-3 weeks for repeat evaluation with removal of gudelia
Acute anemia: Post -op blood loss. 1 unit PRBC today. Continue IV iron. Repeat cbc before discharge
Pain: acetaminophen as needed, Oxycodone 05 mg, and 10 mg every 4 hours as needed, Dilaudid 0.25 mg IV every 3 hours as needed . Pain to be manageable on PO pain medications prior to discharge
Nausea: Zofran 4 mg IV every 6 hours as needed
Bladder/Urinary retention: Could be caused by post anesthesia. Currently with Panda. Once in rehab will have a trial of panda removal with bladder scan, time voids, straight cath. In the interim change Flomax to QPM standard. Per patient no prior
urinary or BPH issues.
Bowel: Colace and Senna, PRN Bisacodyl
DVT Prophylaxis: Mechanical and Lovenox x 28 days per ortho
Pulmonary: Incentive spirometry�
Safety: Continue to reinforce assistance with all transfers.�
Code Status:� Full code
Thank you for allowing me to care for your patient. Please contact me with any questions or concerns. The
�

Documented by User: Marcel Herrera MD 06/15/24 22:25
Consultation - Medical
-
Referring Provider: Luzma Honeycutt
Chief Complaint:� Ambulatory Dysfunction, Right Hip ORIF
�
History of Present Illness:�Patient is an 83 year old Male with PMH of ( COPD, history of CVA, CA, hypertension and spinal stenosis) who presents to ED on 06/10/2024 complaining of Right hip pain s/p fall at home. Patient states that he tripped
over his rollator and fell onto his R side. he noted immediate pain in the R hip at that time. He had a similar fall about 8 weeks ago - also onto his R hip. Imaging at that time was unremarkable. imaging in the ED showed Right hip fracture. He
underwent right hemiarthroplasty with Dr. Frost on 06/11. patient received 1 unit of PRBC today
�
Past Medical History:�COPD, hypertension, spinal stenosis, s/p cervical and thoracic lami, CVA, CA, peripheral neuropathy
Procedure History:� right hip ORIF-05/2024, cervical pillow sling laminectomy, thoracic laminectomy, ablation to spine
Family History:�Dad�cancer, Mom- heart disease,
�
Social History:�
Functional Level Premorbidly: Ambulates with a rollator, assisted with IADLs, independent with ADL baseline
Functional Level Currently:�Transfer�min assist, ambulates to 1025 feet with mod assist RW.
�
Tobacco:�smokes
Alcohol:�yes
Drug use:�Denies�
�
Lives with:�Friend
24-hour assistance available:�
Number of floors:3 story house-�multi level
# steps to enter:�stairglide to 2nd floor
Driving:�no
Occupation: �retired
�
Allergies:�
Allergy/AdvReac Type Severity Reaction Status Date / Time
No Known Allergies Allergy Verified 10/10/23 22:34
Review of system:
Constitutional: (x) abNormal _fatigue
Eye: (x) Normal _
Ear/Nose/Throat: (x) Normal _
Respiratory: (x) Normal _
Cardiovascular: (x)
Gastrointestinal: (x) Normal _
Genitourinary: (x) urinary retention post op
Musculoskeletal: (x) right hip orif. h/o cervical thoracic lami
Integumentary: (x) Normal _
Neurologic: (x)
Psychiatric: (x) Normal _
Endocrine: (x) Normal _
Hematologic/Lymphatic:
Allergic/Immunologic: (x) Normal _
�
Medications:�
Active Current Visit Medication List
Category Date Time Status
Acetaminophen [Tylenol] Med 06/11/24 08:00 Active
1,000 mg PO TID
Docusate Sodium [Colace] Med 06/11/24 20:00 Active
100 mg PO BID
Enoxaparin Sodium [Lovenox] Med 06/12/24 08:00 Active
40 mg SC DAILY
Ezetimibe [Zetia] Med 06/11/24 08:00 Active
10 mg PO DAILY
Flush (0.9% Sodium Chloride) [Flush (Nss)] Med 06/10/24 23:00 Active
See Dose Instructions IV PER PROTOCOL
Fluticasone/Salmeterol 115/21 [Advair Hfa 115/21 Mcg Med 06/11/24 08:00 Active
Inhaler]
2 puff INH R BID
HYDROmorphone [Dilaudid] Med 06/11/24 00:23 Active
0.25 mg IV Q3HPRN PRN
Mag Hydrox/Al Hydrox/Simeth [Maalox] Med 06/11/24 19:16 Active
30 ml PO Q4HPRN PRN
Ondansetron Injectable [Zofran] Med 06/11/24 19:16 Active
4 mg IV Q6HPRN PRN
Oxycodone [Roxicodone] Med 06/11/24 00:23 Active
10 mg PO Q4HPRN PRN
Oxycodone [Roxicodone] Med 06/11/24 00:23 Active
5 mg PO Q4HPRN PRN
Polyethylene Glycol Powder [Miralax] Med 06/11/24 08:00 Active
17 grams PO DAILY
Ramipril [Altace] Med 06/11/24 08:00 Active
30 mg PO DAILY
Rosuvastatin Calcium [Crestor] Med 06/11/24 08:00 Active
40 mg PO DAILY
Tamsulosin [Flomax] Med 06/11/24 00:23 Active
0.4 mg PO DAILYPRN PRN
Tiotropium Elbert 2.5 Mcg [Spiriva Respimat 2.5 Mcg] Med 06/11/24 08:00 Active
2 puff INH R DAILY
Vitals:
Temp Pulse Resp BP Pulse Ox
98.0 F 66 16 134/60 97
06/15/24 03:09 06/15/24 03:09 06/15/24 03:09 06/15/24 03:09 06/15/24 03:09
Height 5 ft
Actual Weight 62.324 kg
Body Mass Index (BMI) 26.8
Physical Exam:�
General Appearance/Observation: Well-developed, well-nourished male in no apparent distress.�
Pain/Comfort Assessment: Denies�
Mood/Affect: Appropriate, pleasant
�
Integumentary/Operative Site:�right hip dressing C/D/I.
�
Eyes: Conjunctiva/Lids: normal���� Pupils: pupils equal round
Ears/Nose/Throat: oral mucosa moist,� throat clear.������������ Lips/Teeth/Gums: normal�
Cardiovascular: Heart: regular, no murmur�
Pulses: dorsalis pedis 2+ bilaterally�
Respiratory: Respiratory Effort/Chest Expansion: normal������� Auscultation: Clear to auscultation bilaterally�
Gastrointestinal: abdomen not tender, no distension, normal abdominal bowel sounds
Genitourinary: panda
Extremities:�Edema: right thigh�Cyanosis: None�Trophic�changes: None
�
Neurology Exam:
Orientation: Alert, Oriented to self, Time, Place�
Memory: Intact for recent medical concerns
Comprehension: Intact
Two step command: Intact
Cranial Nerves:
�� CNII:�Pupillary light reflex: Intact����
�� CN III, IV, : Extraocular muscles: Intact�
�� CN V:�Facial Sensation�at�Forehead: Intact,�Maxilla: Intact,�Mandible: Intact
�� CN VII:�Facial movement: Symmetric
�� CN VIII:�Hearing: Normal
�� CN IX/X:�Speech & swallow: Normal,�Position of Uvula: Midline
�� CN XI:�Shoulder shrug: intact
��
Sensory:
�� Light touch: intact in arms, decreased in bilateral lower extremities
��
Reflexes:
�� Biceps: 2/4 bilaterally
�� Brachioradialis: 2/4 bilaterally
�� Triceps: 1/4 bilaterally
�� Patellar: 1/4 bilaterally
�� Achilles: absent bilaterally
�� Babinski: up going bilaterally
�� Clonus: None
�� Charlie: Negative bilaterally�
Cerebellar: Dysmetria/Ataxia: NT
Musculoskeletal: Motor: (Manual muscle scale 0-5)�
Muscle SA EF WE EE FF FA HF KE DF EHL PF
Right� 5 5 5 2 2 5 5 5
Left 5 5 5 4 5 5 5 5
�
Tone: Normal in all extremities�
Range of Motion: Passively within normal limits in all extremities�, right hip not tested due to surgery
Labs:
Labs
WBC 8.2 10^3/uL (4.8-10.8) 06/15/24 04:41
RBC 3.31 10^6/uL (4.70-6.10) L 06/15/24 04:41
Hgb 10.2 g/dL (13.0-18.0) L 06/15/24 04:41
Hct 30.2 % (39.0-52.0) L 06/15/24 04:41
MCV 91.2 fL (80.0-94.0) 06/15/24 04:41
MCH 30.8 pg (27.0-31.0) 06/15/24 04:41
MCHC 33.8 g/dL (33.0-37.0) 06/15/24 04:41
RDW 14.6 % (11.5-14.5) H 06/15/24 04:41
Plt Count 179 10^3/uL (130-400) 06/15/24 04:41
MPV 10.6 fL (7.4-10.4) H 06/15/24 04:41
Sodium 139 mmol/L (135-145) 06/15/24 04:41
Potassium 5.1 mmol/L (3.5-5.1) 06/15/24 04:41
Chloride 107 mmol/L (98-107) 06/15/24 04:41
Carbon Dioxide 26 mmol/L (22-30) 06/15/24 04:41
BUN 27 mg/dl (9-20) H 06/15/24 04:41
Creatinine 0.8 mg/dL (0.7-1.3) 06/15/24 04:41
Estimated Creat Clear 50 ml/min 06/15/24 04:41
eGFR > 60.00 06/15/24 04:41
Glucose 94 mg/dl (70-99) 06/15/24 04:41
Calcium 9.2 mg/dl (8.4-10.2) 06/15/24 04:41
Iron < 20 ug/dl (49-181) L 06/13/24 07:40
TIBC 193 ug/dl (261-462) L 06/13/24 07:40
% Saturation % (20-50) 06/13/24 07:40
Ferritin 157.0 ng/ml (17.9-464.0) 06/13/24 07:40
Vitamin B12 560 pg/ml (239-931) 06/13/24 07:40
Folate 14.3 ng/ml (2.76-20) 06/13/24 07:40
Urine Color Yellow 06/11/24 05:27
Urine Clarity Clear (Clear) 06/11/24 05:27
Urine pH 5.0 (5.0-9.0) 06/11/24 05:27
Ur Specific Wana 1.020 (<1.030) 06/11/24 05:27
Urine Ketones 2+ (Negative) A 06/11/24 05:27
Ur Occult Blood Reflex Negative (Negative) 06/11/24 05:27
Urine Nitrite (Reflex) Negative (Negative) 06/11/24 05:27
Urine Bilirubin Negative (Negative) 06/11/24 05:27
Urine Urobilinogen Negative (Neg - 1+) 06/11/24 05:27
Leukocyte Esterase Rfl Negative (Negative) 06/11/24 05:27
Urine Glucose Negative (Negative) 06/11/24 05:27
Urine Albumin (Reflex) Trace (Neg - Trace) 06/11/24 05:27
Blood Type O POS 06/14/24 09:00
Antibody Screen Negative (Negative) 06/14/24 09:00
Crossmatch IS Only See Detail 06/14/24 09:00
Diagnostic Results:�as per HPI�
Assessment:
83 year old M H (COPD, history of CVA, CA, hypertension and spinal stenosis) with 06/10/2024, s/p right hemiarthroplasty with Dr. Frost on 06/11.
Plan�
PT/OT to increase independence with ADLs, improve balance, coordination, endurance, strength, mobility, community reintegration, decreased burden of care on others and family education.�
Ambulatory Dysfunction due to hip fracture: Cont PT/OT
Right Hip Fracture: traumatic, with underlying osteopenia:s/p R hip jose roberto arthroplasty, ORIF greater trochanter tip fracture 06/[address] Frost. Recommends Lovenox x 28 days post-op renally dosed.
- XR: Mildly displaced right femoral neck fracture with slight foreshortening
-WBAT RLE, Abduction precautions, posterior hip precautions PT/OT
- Ortho f/u in 2-3 weeks for repeat evaluation with removal of gudelia
Acute anemia: Post -op blood loss. 1 unit PRBC today. Continue IV iron. Monitor Hgb
HTN: Ramipril qd
HLD: Rosuvastatin and Zetia
Acute urinary retention post-op: required straight cath x 4. Panda placed today.
COPD, no acute exacerbation. Continue fluticasone - salmeterol and Incruse Ellipta
Essential hypertension: continue ramipril with hold parameters
Hyperlipidemia: continue Crestor and Zetia
Psych: Psychology consult.� Monitor mood, adjust as needed.�
Pain: acetaminophen as needed, 05 mg, 10 mg every 4 hours as needed, Dilaudid 0.25 mg IV every 3 hours as needed
Nausea: Zofran 4 mg IV every 6 hours as needed
Bladder: Panda. Once in rehab will have trial of panda removal with bladder scan, time voids, straight cath. Change Flomax to QPM standard if patient had urinary issues prior to surgery..
Bowel: Colace and Senna, PRN Bisacodyl
DVT Prophylaxis: Mechanical and Lovenox x 28 days per ortho
Pulmonary: Incentive spirometry�
Safety: Continue to reinforce assistance with all transfers.�
Code Status:� Full code
Dispo�(date/plan/equipment needs): Home with family care.� Social history reviewed.�
Functional and Medical Goals:�Modified Independent with ADL�s, ambulation, transfers�
Discharge Destination:� Acute inpatient rehabilitation
Summary Recommendations: Patient with ambulatory dysfunction status post right hip hemiarthroplasty on 06/11, would benefit from acute inpatient rehabilitation for PT/OT to increase independence with ADLs, improve balance, coordination, endurance,
strength, mobility, community reintegration, decreased burden of care on others and family education.�
Right Hip Fracture: traumatic, with underlying osteopenia:s/p R hip jose roberto arthroplasty, ORIF greater trochanter tip fracture 06/[address] Frost. Recommends Lovenox x 28 days post-op renally dosed.
-WBAT RLE, Abduction precautions, posterior hip precautions PT/OT
Acute anemia: Post -op blood loss. 1 unit PRBC today. Continue IV iron. Repeat cbc before discharge
Pain: acetaminophen as needed, Oxycodone 05 mg, and 10 mg every 4 hours as needed, Dilaudid 0.25 mg IV every 3 hours as needed . Pain to be manageable on PO pain medications prior to discharge
Bladder/Urinary retention: Could be caused by post anesthesia. Currently with Panda. Once in rehab will have a trial of panda removal with bladder scan, time voids, straight cath. In the interim change Flomax to QPM standard. Per patient no prior
urinary or BPH issues.
Bowel: Colace and Senna, PRN Bisacodyl
DVT Prophylaxis: Mechanical and Lovenox x 28 days per ortho
Pulmonary: Incentive spirometry�
Safety: Continue to reinforce assistance with all transfers.�
Code Status:� Full code
Thank you for allowing me to care for your patient. Please contact me with any questions or concerns.
Attending Statement:
I saw and examined the patient today. Reviewed care plan with patient, therapy, nursing, and physician medical office receptionist assistant. I agree with the above subjective and physical exam, and plan as documented by SAVANAH Arciniega with adjustments made as necessary.
�
--- NOTE | 2024-06-15 11:28 | CM ---
Addendum entered by Gwen Cintron 06/15/24 16:15:
Met with pt at bedside
[facility] [place]
Referrals sent in [facility]
PM&R eval pending
Original Note:
Case management following for discharge planning
PT recs - acute rehab
PM&R consult pending
Referral sent in [facility] Port for [facility]. Spoke with Ag at [facility] [phone]. requesting review.
Plan - anticipate transfer to acute rehab when medically ready
[2024-06-15] MEDS: ROXICODONE 5 MG PO (20:25)
[2024-06-15] MEDS: ZOFRAN 4 MG IV (21:47)
[2024-06-16] MEDS: COMPAZINE 5 MG IV (00:45)
[2024-06-16 07:09] VITALS: BP 127/62
--- NOTE | 2024-06-16 07:49 | W.PN.HOSP.TC ---
Today's Communication/Plan
-
DC today
Assessment / Plan
Assessment / Plan
Assessment:
Right Hip Fracture, traumatic, with underlying osteopenia
- XR: Mildly displaced right femoral neck fracture with slight foreshortening
- s/p R hip jose roberto arthroplasty, ORIF greater trochanter tip fracture 06/11
- continue pain control
- continue Lovenox for DVT ppx
- WBAT RLE, Abduction precautions, posterior hip precautions PT/OT
- ortho f/u in 2-3 weeks for repeat eval with removal of gudelia
- appreciate physiatry eval - will DC todya
Acute blood loss anemia, operative blood losses
- follow Hb
- s/p 1 unit PRBC on 06/14 with appropriate rise
- continue IV iron
Acute urinary retention post-op
- has required straight cath x 4
- Coyne placed on 06/14 - voiding trial as ambulation improves
COPD, no acute exacerbation
- Continue fluticasone - salmeterol and Incruse Ellipta
Essential hypertension
- continue ramipril with hold parameters
Hyperlipidemia
- continue Crestor and Zetia
DVT proph: Lovenox
Code Status: Full Code
Dispo: Acute rehab recommended - plan ot DC today
Anticipated Discharge: Today
Subjective/Interval History
-
Date of Service: June 16, 2024
anxious to leave
some pain on bottom, trying to reposition
Objective Data
-
Vital Signs:
Vital Signs
Temp Pulse Resp BP Pulse Ox
98.8 F 65 20 154/65 98
06/15/24 22:05 06/15/24 22:05 06/15/24 22:05 06/15/24 22:05 06/15/24 22:05
I&O
10/28/24 10/29/24 10/30/24
06:59 06:59 06:59
Intake Total 1600 / 1600 1260 / 1260
Output Total 975 / 975 950 / 950
Balance 625 / 625 310 / 310
Review of Systems
-
History Source: Patient
All other systems: Reviewed and negative
Physical Exam
-
General: No Apparent Distress
HEENT: PERRLA
Respiratory: Clear to Auscultation; Negative Wheezes
Cardiac: Regular Rhythm and S1/S2
GI: Soft and Nontender
Musculoskeletal: No Edema
Skin: Warm and Dry; Negative Rash
Neuro: AO x 3
Psych: Calm
Data Reviewed
-
Diagnostic Radiology: Report Reviewed by me
Labs: Labs Reviewed by me
--- NOTE | 2024-06-16 08:05 | W.DS.TRANS ---
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
-
Discharge Instructions:
Discharge Diagnosis/Procedures right hip fracture status post right hip
hemiarthroplasty, ORIF
Diet Regular
Activity As tolerated
Driving Restrictions No driving
Bathing Restrictions None
Other Services PT,OT
Instructions:
Stand-Alone Forms:
Changes to Home Medications: Yes
Discharge Medications:
DC Medications w/original date entered in [facility]
ezetimibe 10 mg tablet 10 mg PO DAILY High Cholesterol 10/10/23
rosuvastatin 40 mg tablet 40 mg PO DAILY High Cholesterol 10/10/23
umeclidinium 62.5 mcg/actuation blister powder for inhalation (Incruse Ellipta) 1 inh inhalation R DAILY Lung/Breathing Issues 10/10/23
aspirin 81 mg tablet,delayed release 81 mg PO DAILY Blood Clot Prevention/Tx 06/10/24
fluticasone 250 mcg-salmeterol 50 mcg/dose blistr powdr for inhalation 1 inh inhalation R BID Lung/Breathing Issues 06/10/24
ramipril 10 mg capsule 30 mg PO DAILY Blood Pressure 06/10/24
acetaminophen 500 mg tablet (Tylenol Extra Strength) 1,000 mg (2 x 500 mg) PO TID #21 tabs 06/16/24
docusate sodium 100 mg capsule 100 mg PO BID #1 cap 06/16/24
enoxaparin 40 mg/0.4 mL subcutaneous syringe 40 mg (0.4 mL) SC DAILY #23 mL 06/16/24
oxycodone 5 mg tablet 5 mg PO Q4HPRN PRN severe pain #15 tabs 06/16/24
polyethylene glycol 3350 17 gram oral powder packet (HealthyLax) 17 g PO DAILY #30 ea 06/16/24
Home Medication Changes
Addition of Lovenox x 23 more days
standing Tylenol
Oxycodone PRN
bowel regimen: Miralax + Colace
Pending Results: No
[2024-06-16] MEDS: LOVENOX 40 MG SC (08:16)
[2024-06-16] MEDS: MIRALAX 17 GRAMS PO (08:17)
[2024-06-16] MEDS: COLACE 100 MG PO (08:17)
[2024-06-16] MEDS: ALTACE 30 MG PO (08:17)
[2024-06-16] MEDS: TYLENOL 1000 MG PO (08:17)
[2024-06-16] MEDS: CRESTOR 40 MG PO (08:17)
[2024-06-16] MEDS: ZETIA 10 MG PO (08:17)
[2024-06-16] MEDS: SPIRIVA RESPIMAT 2.5 MCG 2 PUFF INH (08:44)
[2024-06-16] MEDS: ADVAIR HFA 115/21 MCG INHALER 2 PUFF INH (08:44)
--- NOTE | 2024-06-16 09:01 | CM ---
Addendum entered by Gwen Cintron 06/16/24 12:17:
Plan - transfer to [facility]
R - ext [phone]
F - [phone]
Addendum entered by Gwen Cintron 06/16/24 11:22:
Spoke with Ag from [facility] - can accept today
Discussed with pt and his SO Xavier
Discussed IMM
Plan - transfer to [facility]
Original Note:
Updates sent in [facility]
Called Corine from [facility] [phone] to check on bed availability
Will review and return call
[2024-06-16] MEDS: FLUAD (65 yr+) 2024-2025 FORMULA 0.5 ML IM (12:16)
--- NOTE | 2024-06-16 12:44 | W.DCSUMMARY ---
Discharge Summary
Discharge Data
Date of Admission: 06/10/24
Date of Discharge: 06/16/24
-
Pending Results: No
Hospital Course
Discharging Physician : Dr. Luzma Dover
Disposition : Acute Rehab
Primary care physician : Dr. Stan Ramirez
Principal Discharge diagnosis : right hip fracture status post right hip hemiarthroplasty, ORIF
Hospital Course :
Mr. Angel Beal is a 83 yo man with hx COPD, hypertension and spinal stenosis who presents to ED complaining of R hip pain status post fall. Right hip x-ray showed a displaced transcervical femoral neck fracture. He was medically cleared
for surgery and underwent right hip hemiarthroplasty on 06/11/24. He had post-op acute blood loss anemia and received 1 unit PRBC. Pain controlled with Tylenol and oxycodone. Post-op course complicated by urinary retention s/p panda. Plan for
voiding trial at rehab once mobility improved. He is started on Lovenox 40mg subQ QD x 28 days for DVT PPx (received 5 doses in the hospital). He is discharged to acute rehab and will follow up with Dr. Frost in 2 weeks.
Time spent on discharge 31 minutes.
Important imaging findings :
06/10/24
IMPRESSION:
Mildly displaced right femoral neck fracture with slight foreshortening.
06/11/24
IMPRESSION:
Right hip arthroplasty without evidence of immediate hardware complication.
Procedure findings :
06/11/24
Implants:
Marcela LD fracture cemented hemiarthroplasty bipolar, size 1415 femoral stem, 51 mm bipolar shell, 28 mm head +7
Procedure and Technique:
Right hip hemiarthroplasty
Discharge Plan
-
Patient Disposition: Acute Rehab Facility
Discharge Diagnosis/Procedures: right hip fracture status post right hip hemiarthroplasty, ORIF
Condition: Good
Diet: Regular
Activity: As tolerated
Additional Activity: WBAT RLE, Abduction precautions, posterior hip precautions
Driving Restrictions: No driving
Bathing Restrictions: None
Other Services: PT and OT
Activity Restrictions/Additional Instructions:
Continue panda catheter. Voiding trial should be performed at rehab when mobility improves. If voiding trial fails, your doctor may prescribe you flomax and refer you to Urology.
Referrals:
Xavier Salazar MD [Family Provider] - in less than 1 week
Dimitris Frost MD [Active] - in two weeks (follow up for repeat evaluation with removal of gudelia )
Additional Discharge Medication Instructions: Complete Lovenox 40 units subQ; 28 day course (you have 23 more days)
Continue standing Tylenol for pain control for another week. You are also prescribed oxycodone as needed.
Prescriptions:
New
docusate sodium 100 mg Capsule
100 mg PO BID Qty: 1 0RF
polyethylene glycol 3350 [HealthyLax] 17 gram Powder In Packet
17 g PO DAILY Qty: 30 0RF
enoxaparin 40 mg/0.4 mL Syringe
40 mg SC DAILY Qty: 23 0RF
acetaminophen [Tylenol Extra Strength] 500 mg Tablet
1,000 mg PO TID Qty: 21 0RF
oxycodone 5 mg Tablet
5 mg PO Q4HPRN PRN (Reason: severe pain) Qty: 15 0RF
Continued
ezetimibe 10 mg Tablet
10 mg PO DAILY
rosuvastatin 40 mg Tablet
40 mg PO DAILY
Incruse Ellipta 62.5 mcg/actuation Blister With Device
1 inh INHALATION R DAILY
fluticasone propion-salmeterol 250-50 mcg/dose blister with device
1 inh INHALATION R BID
aspirin 81 mg Tablet,Delayed Release (Dr/Ec)
81 mg PO DAILY
ramipril 10 mg capsule
30 mg PO DAILY
Discharge Orders:
Discharge Patient (As Directed); Ordered 06/16/24
Ordered By: Luzma Dover
Discharge Date and Time
Print Language: POLISH
--- NOTE | 2024-06-16 13:36 | WOUNDNOTE ---
SACRUM/GLUTEAL CLEFT
--- NOTE | 2024-06-16 13:38 | WOUNDNOTE ---
WON RN note: Patient admitted with s/p fall, closed R hip fracture.
See H&P for complete history. Lives with 24 hr caregivers per patient.
PMH: Fall, spinal stenosis, Pilonidal cyst, HTN, arthritis.
Wound Location and type/assessment: Patient developed maroon non blanchable discolored skin on sacrum with shallow opening on gluteal cleft, drainage scant. Suspect evolving DTI vs stage 2 PI. Patient has R hip dressing intact, using abductor wedge
btw legs. Heels are boggy, barely blanchable. Patient reports R leg with poor circulation, skin warm and dry. Few small skin tears on arms, dressings intact. Patient confirms he has been oob with PT ambulating and tolerates sitting in chair.
Appetite: Fair had few bites of peanut butter sandwich. 'Food here is horrible' patient reports. Encouraged protein in diet. Reviewed types of protein to eat with patient.
Pressure redistribution devices in place: Air overlay on bed, air chair cushion in rm for chair. Turns self needs some assist with legs. Brought in purple foam wedge to assist with turning.
Plan: Silicone foam applied to sacrum/gluteal cleft. Adhesive foams applied to heels. Recommend flat pillow under calves to offload heels if able with hip. Continue offloading measures with air overlay and cushion. If becomes difficult to turn
recommend switching to air mattress. Will confirm orders with hospitalist and updates nurse Lopez.
Updated care plan and will follow as needed.
Note to case management of equipment requested for discharge: Air cushion and air overlay going to [facility].
Recommend follow up at wound care center upon discharge. Gave patient wound center pamphlet.
[2024-06-16 13:48] VITALS: BP 122/58
== END 2024-06-16 14:10 | DRG 522 ==
LOC: 2 SOUTH 23:03
PROVIDERS: Internal Medicine; Physician Assistant Medical; ADMITTING PHYSICIAN Hospitalist; ATTENDING PHYSICIAN Student in an Organized Health Care Education/Training Program; CONSULT PHYSICIAN Orthopaedic Surgery; CONSULT PHYSICIAN Physical Medicine & Rehabilitation; EMERGENCY PHYSICIAN Emergency Medicine; FAMILY PHYSICIAN Internal Medicine
PROC: 0SRR0J9 Replacement of Right Hip Joint, Femoral Surface with Synthetic Substitute, Cemented, Open Approach (ICD-10-PCS; 2024-06-11)
PROC: 30233N1 Transfusion of Nonautologous Red Blood Cells into Peripheral Vein, Percutaneous Approach (ICD-10-PCS; 2024-06-14)
DX: S72.091A Other fracture of head and neck of right femur, initial encounter for closed fracture (principal); D62 Acute posthemorrhagic anemia; S72.111A Displaced fracture of greater trochanter of right femur, initial encounter for closed fracture; W18.30XA Fall on same level, unspecified, initial encounter; J44.9 Chronic obstructive pulmonary disease, unspecified; I10 Essential (primary) hypertension; N99.89 Other postprocedural complications and disorders of genitourinary system; R33.8 Other retention of urine; M85.80 Other specified disorders of bone density and structure, unspecified site; E78.00 Pure hypercholesterolemia, unspecified
CPT/HCPCS: 73502; 80048; 81003; 82607; 82728; 82746; 83540; 83550; 85027; 86850; 86900; 86901; 86920; 93005; 94640; 96374; 96375; 97110; 97116; 97163; 97167; 97530; 97535; 99284; 99406; C1713; C1776; J2916; P9016

== ENCOUNTER → 2024-06-23 09:19 | Outpatient (REF) | payer MEDICARE, SELFPAY | LOC: WOUND 09:19 | PROVIDERS: ATTENDING PHYSICIAN Surgery; FAMILY PHYSICIAN Internal Medicine | DX: L89.153 Pressure ulcer of sacral region, stage 3 (principal); S72.001A Fracture of unspecified part of neck of right femur, initial encounter for closed fracture; I73.9 Peripheral vascular disease, unspecified; I44.4 Left anterior fascicular block; I35.1 Nonrheumatic aortic (valve) insufficiency; J44.9 Chronic obstructive pulmonary disease, unspecified; F17.200 Nicotine dependence, unspecified, uncomplicated; X58.XXXA Exposure to other specified factors, initial encounter | CPT/HCPCS: 11042; 87070; 87075; 87077; 87186; 87205; 99214 ==

== ENCOUNTER → 2024-07-02 10:42 | Outpatient (REF) | payer MEDICARE, SELFPAY | LOC: WOUND 10:42 | PROVIDERS: ATTENDING PHYSICIAN Surgery; FAMILY PHYSICIAN Internal Medicine | DX: L89.153 Pressure ulcer of sacral region, stage 3 (principal); I73.9 Peripheral vascular disease, unspecified; I44.4 Left anterior fascicular block; I35.1 Nonrheumatic aortic (valve) insufficiency; J44.9 Chronic obstructive pulmonary disease, unspecified; F17.200 Nicotine dependence, unspecified, uncomplicated; S72.001S Fracture of unspecified part of neck of right femur, sequela; X58.XXXS Exposure to other specified factors, sequela | CPT/HCPCS: 99213 ==

== ENCOUNTER → 2024-07-07 09:59 | Outpatient (REF) | payer MEDICARE, SELFPAY | LOC: WOUND 09:59 | PROVIDERS: ATTENDING PHYSICIAN Surgery; FAMILY PHYSICIAN Internal Medicine | DX: L89.153 Pressure ulcer of sacral region, stage 3 (principal); S72.001S Fracture of unspecified part of neck of right femur, sequela; I73.9 Peripheral vascular disease, unspecified; I44.4 Left anterior fascicular block; I35.1 Nonrheumatic aortic (valve) insufficiency; J44.9 Chronic obstructive pulmonary disease, unspecified; F17.200 Nicotine dependence, unspecified, uncomplicated; X58.XXXS Exposure to other specified factors, sequela | CPT/HCPCS: 11042 ==

== ENCOUNTER → 2024-07-13 12:33 | Outpatient (REF) | payer MEDICARE, SELFPAY | LOC: WOUND 12:33 | PROVIDERS: ATTENDING PHYSICIAN Surgery; FAMILY PHYSICIAN Internal Medicine | DX: L89.153 Pressure ulcer of sacral region, stage 3 (principal); S72.001S Fracture of unspecified part of neck of right femur, sequela; X58.XXXS Exposure to other specified factors, sequela; I73.9 Peripheral vascular disease, unspecified; I44.4 Left anterior fascicular block; I35.1 Nonrheumatic aortic (valve) insufficiency; J44.9 Chronic obstructive pulmonary disease, unspecified; F17.200 Nicotine dependence, unspecified, uncomplicated | CPT/HCPCS: 97605; 99213 ==

== ENCOUNTER → 2024-07-27 14:29 | Outpatient (REF) | payer MEDICARE, SELFPAY | LOC: WOUND 14:29 | PROVIDERS: ATTENDING PHYSICIAN Surgery; FAMILY PHYSICIAN Internal Medicine | DX: L89.153 Pressure ulcer of sacral region, stage 3 (principal); L97.212 Non-pressure chronic ulcer of right calf with fat layer exposed; S72.001S Fracture of unspecified part of neck of right femur, sequela; I44.4 Left anterior fascicular block; I73.9 Peripheral vascular disease, unspecified; I35.1 Nonrheumatic aortic (valve) insufficiency; J44.9 Chronic obstructive pulmonary disease, unspecified; F17.200 Nicotine dependence, unspecified, uncomplicated | CPT/HCPCS: 97605; 99213 ==

== ENCOUNTER → 2024-08-06 13:29 | Outpatient (REF) | payer MEDICARE, SELFPAY | LOC: EMG 13:29 | PROVIDERS: ATTENDING PHYSICIAN Internal Medicine | DX: R29.898 Other symptoms and signs involving the musculoskeletal system (principal); M54.17 Radiculopathy, lumbosacral region | CPT/HCPCS: 95886; 95909 ==

== ENCOUNTER → 2024-08-10 10:55 | Outpatient (REF) | payer MEDICARE, SELFPAY | LOC: WOUND 10:55 | PROVIDERS: ATTENDING PHYSICIAN Surgery; FAMILY PHYSICIAN Internal Medicine | DX: L89.153 Pressure ulcer of sacral region, stage 3 (principal); L97.212 Non-pressure chronic ulcer of right calf with fat layer exposed; I44.4 Left anterior fascicular block; I73.9 Peripheral vascular disease, unspecified; F17.200 Nicotine dependence, unspecified, uncomplicated; I35.1 Nonrheumatic aortic (valve) insufficiency; J44.9 Chronic obstructive pulmonary disease, unspecified; S72.001A Fracture of unspecified part of neck of right femur, initial encounter for closed fracture; X58.XXXA Exposure to other specified factors, initial encounter | CPT/HCPCS: 97605; 99213 ==

== ENCOUNTER → 2024-08-31 13:51 | Outpatient (REF) | payer MEDICARE, SELFPAY | LOC: WOUND 13:51 | PROVIDERS: ATTENDING PHYSICIAN Surgery; FAMILY PHYSICIAN Internal Medicine | DX: L89.153 Pressure ulcer of sacral region, stage 3 (principal); L97.212 Non-pressure chronic ulcer of right calf with fat layer exposed; I44.4 Left anterior fascicular block; I73.9 Peripheral vascular disease, unspecified; I35.1 Nonrheumatic aortic (valve) insufficiency; J44.9 Chronic obstructive pulmonary disease, unspecified; F17.200 Nicotine dependence, unspecified, uncomplicated | CPT/HCPCS: 99213 ==

== ENCOUNTER → 2024-09-15 13:09 | Outpatient (REF) | payer MEDICARE, SELFPAY | LOC: WOUND 13:09 | PROVIDERS: ATTENDING PHYSICIAN Surgery; FAMILY PHYSICIAN Internal Medicine | DX: L89.153 Pressure ulcer of sacral region, stage 3 (principal); L97.212 Non-pressure chronic ulcer of right calf with fat layer exposed; S72.001A Fracture of unspecified part of neck of right femur, initial encounter for closed fracture; I44.4 Left anterior fascicular block; I73.9 Peripheral vascular disease, unspecified; F17.200 Nicotine dependence, unspecified, uncomplicated; I35.1 Nonrheumatic aortic (valve) insufficiency; J44.9 Chronic obstructive pulmonary disease, unspecified | CPT/HCPCS: 99213 ==

== ENCOUNTER → 2024-09-29 12:59 | Outpatient (REF) | payer MEDICARE, SELFPAY | LOC: WOUND 12:59 | PROVIDERS: ATTENDING PHYSICIAN Surgery; FAMILY PHYSICIAN Internal Medicine | DX: L89.153 Pressure ulcer of sacral region, stage 3 (principal); L97.212 Non-pressure chronic ulcer of right calf with fat layer exposed; S72.001A Fracture of unspecified part of neck of right femur, initial encounter for closed fracture; I44.4 Left anterior fascicular block; I73.9 Peripheral vascular disease, unspecified; I35.1 Nonrheumatic aortic (valve) insufficiency; J44.9 Chronic obstructive pulmonary disease, unspecified; F17.200 Nicotine dependence, unspecified, uncomplicated; X58.XXXA Exposure to other specified factors, initial encounter | CPT/HCPCS: 99212 ==

== ENCOUNTER → 2024-10-09 14:25 | Outpatient (REF) | payer MEDICARE, SELFPAY | LOC: WOUND 14:25 | PROVIDERS: ATTENDING PHYSICIAN Surgery; FAMILY PHYSICIAN Internal Medicine | DX: L89.153 Pressure ulcer of sacral region, stage 3 (principal); L97.212 Non-pressure chronic ulcer of right calf with fat layer exposed; S72.001S Fracture of unspecified part of neck of right femur, sequela; X58.XXXS Exposure to other specified factors, sequela; I44.4 Left anterior fascicular block; I73.9 Peripheral vascular disease, unspecified; I35.1 Nonrheumatic aortic (valve) insufficiency; J44.9 Chronic obstructive pulmonary disease, unspecified; F17.200 Nicotine dependence, unspecified, uncomplicated | CPT/HCPCS: 99213 ==

== ENCOUNTER → 2024-12-08 13:27 | Outpatient (REF) | payer MEDICARE, SELFPAY | LOC: WOUND 13:27 | PROVIDERS: ATTENDING PHYSICIAN Surgery; FAMILY PHYSICIAN Internal Medicine | DX: L89.154 Pressure ulcer of sacral region, stage 4 (principal); I44.4 Left anterior fascicular block; I73.9 Peripheral vascular disease, unspecified; F17.200 Nicotine dependence, unspecified, uncomplicated; I35.1 Nonrheumatic aortic (valve) insufficiency; J44.9 Chronic obstructive pulmonary disease, unspecified | CPT/HCPCS: 11042 ==

== ENCOUNTER → 2024-12-14 13:31 | Outpatient (REF) | payer MEDICARE, SELFPAY | LOC: WOUND 13:31 | PROVIDERS: ATTENDING PHYSICIAN Surgery | DX: L89.154 Pressure ulcer of sacral region, stage 4 (principal); I44.4 Left anterior fascicular block; I73.9 Peripheral vascular disease, unspecified; F17.200 Nicotine dependence, unspecified, uncomplicated; I35.1 Nonrheumatic aortic (valve) insufficiency; J44.9 Chronic obstructive pulmonary disease, unspecified | CPT/HCPCS: 11042; 72190 ==

== ENCOUNTER → 2024-12-22 12:55 | Outpatient (REF) | payer MEDICARE, SELFPAY | LOC: WOUND 12:55 | PROVIDERS: ATTENDING PHYSICIAN Surgery; FAMILY PHYSICIAN Internal Medicine | DX: L89.154 Pressure ulcer of sacral region, stage 4 (principal); I44.4 Left anterior fascicular block; I73.9 Peripheral vascular disease, unspecified; F17.200 Nicotine dependence, unspecified, uncomplicated; I35.1 Nonrheumatic aortic (valve) insufficiency; J44.9 Chronic obstructive pulmonary disease, unspecified | CPT/HCPCS: 11042 ==

== ENCOUNTER → 2024-12-28 13:29 | Outpatient (REF) | payer MEDICARE, SELFPAY | LOC: WOUND 13:29 | PROVIDERS: ATTENDING PHYSICIAN Surgery; FAMILY PHYSICIAN Internal Medicine | DX: L89.154 Pressure ulcer of sacral region, stage 4 (principal); I44.4 Left anterior fascicular block; I73.9 Peripheral vascular disease, unspecified; F17.200 Nicotine dependence, unspecified, uncomplicated; I35.1 Nonrheumatic aortic (valve) insufficiency; J44.9 Chronic obstructive pulmonary disease, unspecified | CPT/HCPCS: 11042 ==

== ENCOUNTER → 2025-01-05 12:49 | Outpatient (REF) | payer MEDICARE, SELFPAY | LOC: WOUND 12:49 | PROVIDERS: ATTENDING PHYSICIAN Surgery; FAMILY PHYSICIAN Internal Medicine | DX: L89.154 Pressure ulcer of sacral region, stage 4 (principal); L97.811 Non-pressure chronic ulcer of other part of right lower leg limited to breakdown of skin; I44.4 Left anterior fascicular block; I73.9 Peripheral vascular disease, unspecified; I35.1 Nonrheumatic aortic (valve) insufficiency; J44.9 Chronic obstructive pulmonary disease, unspecified; F17.200 Nicotine dependence, unspecified, uncomplicated | CPT/HCPCS: 11042; 99213 ==

== ENCOUNTER → 2025-01-18 12:53 | Outpatient (REF) | payer MEDICARE, SELFPAY | LOC: WOUND 12:53 | PROVIDERS: ATTENDING PHYSICIAN Surgery; FAMILY PHYSICIAN Internal Medicine | DX: L89.154 Pressure ulcer of sacral region, stage 4 (principal); L97.811 Non-pressure chronic ulcer of other part of right lower leg limited to breakdown of skin; I44.4 Left anterior fascicular block; I73.9 Peripheral vascular disease, unspecified; I35.1 Nonrheumatic aortic (valve) insufficiency; J44.9 Chronic obstructive pulmonary disease, unspecified; F17.200 Nicotine dependence, unspecified, uncomplicated | CPT/HCPCS: 11042 ==

== ENCOUNTER → 2025-01-26 12:48 | Outpatient (REF) | payer MEDICARE, SELFPAY | LOC: WOUND 12:48 | PROVIDERS: ATTENDING PHYSICIAN Surgery; FAMILY PHYSICIAN Internal Medicine | DX: L89.154 Pressure ulcer of sacral region, stage 4 (principal); I44.4 Left anterior fascicular block; I73.9 Peripheral vascular disease, unspecified; I35.1 Nonrheumatic aortic (valve) insufficiency; J44.9 Chronic obstructive pulmonary disease, unspecified; F17.200 Nicotine dependence, unspecified, uncomplicated | CPT/HCPCS: 99213 ==

== ENCOUNTER → 2025-02-16 13:07 | Outpatient (REF) | payer MEDICARE, SELFPAY | LOC: WOUND 13:07 | PROVIDERS: ATTENDING PHYSICIAN Surgery; FAMILY PHYSICIAN Internal Medicine | DX: L89.154 Pressure ulcer of sacral region, stage 4 (principal); I44.4 Left anterior fascicular block; I73.9 Peripheral vascular disease, unspecified; F17.200 Nicotine dependence, unspecified, uncomplicated; I35.1 Nonrheumatic aortic (valve) insufficiency; J44.9 Chronic obstructive pulmonary disease, unspecified | CPT/HCPCS: 99213 ==

== ENCOUNTER → 2025-03-01 12:48 | Outpatient (REF) | payer MEDICARE, SELFPAY | LOC: WOUND 12:48 | PROVIDERS: ATTENDING PHYSICIAN Surgery; FAMILY PHYSICIAN Internal Medicine | DX: L89.154 Pressure ulcer of sacral region, stage 4 (principal); I44.4 Left anterior fascicular block; I73.9 Peripheral vascular disease, unspecified; I35.1 Nonrheumatic aortic (valve) insufficiency; J44.9 Chronic obstructive pulmonary disease, unspecified; F17.200 Nicotine dependence, unspecified, uncomplicated | CPT/HCPCS: 99213 ==

== ENCOUNTER → 2025-03-15 12:54 | Outpatient (REF) | payer MEDICARE, SELFPAY | LOC: WOUND 12:54 | PROVIDERS: ATTENDING PHYSICIAN Surgery; FAMILY PHYSICIAN Internal Medicine | DX: S81.811A Laceration without foreign body, right lower leg, initial encounter (principal); N49.2 Inflammatory disorders of scrotum; L89.154 Pressure ulcer of sacral region, stage 4; I44.4 Left anterior fascicular block; I73.9 Peripheral vascular disease, unspecified; I35.1 Nonrheumatic aortic (valve) insufficiency; F17.200 Nicotine dependence, unspecified, uncomplicated; J44.9 Chronic obstructive pulmonary disease, unspecified; W22.8XXA Striking against or struck by other objects, initial encounter | CPT/HCPCS: 99213 ==

== ENCOUNTER → 2025-03-29 12:59 | Outpatient (REF) | payer MEDICARE, SELFPAY | LOC: WOUND 12:59 | PROVIDERS: ATTENDING PHYSICIAN Surgery; FAMILY PHYSICIAN Internal Medicine | DX: S81.811A Laceration without foreign body, right lower leg, initial encounter (principal); N49.2 Inflammatory disorders of scrotum; L89.154 Pressure ulcer of sacral region, stage 4; I44.4 Left anterior fascicular block; I73.9 Peripheral vascular disease, unspecified; F17.200 Nicotine dependence, unspecified, uncomplicated; I35.1 Nonrheumatic aortic (valve) insufficiency; J44.9 Chronic obstructive pulmonary disease, unspecified; X58.XXXA Exposure to other specified factors, initial encounter | CPT/HCPCS: 99212 ==

== ENCOUNTER → 2025-06-18 10:59 | Outpatient (REF) | payer MEDICARE, SELFPAY | LOC: WOUND 10:59 | PROVIDERS: ATTENDING PHYSICIAN Surgery; FAMILY PHYSICIAN Internal Medicine | DX: S31.30XA Unspecified open wound of scrotum and testes, initial encounter (principal); N49.2 Inflammatory disorders of scrotum; I44.4 Left anterior fascicular block; I73.9 Peripheral vascular disease, unspecified; F17.200 Nicotine dependence, unspecified, uncomplicated; I35.1 Nonrheumatic aortic (valve) insufficiency; J44.9 Chronic obstructive pulmonary disease, unspecified; X58.XXXA Exposure to other specified factors, initial encounter | CPT/HCPCS: 99213 ==

== ENCOUNTER → 2025-06-25 10:50 | Outpatient (REF) | payer MEDICARE, SELFPAY | LOC: WOUND 10:50 | PROVIDERS: ATTENDING PHYSICIAN Surgery; FAMILY PHYSICIAN Internal Medicine | DX: S31.30XA Unspecified open wound of scrotum and testes, initial encounter (principal); N49.2 Inflammatory disorders of scrotum; L89.154 Pressure ulcer of sacral region, stage 4; I44.4 Left anterior fascicular block; I73.9 Peripheral vascular disease, unspecified; I35.1 Nonrheumatic aortic (valve) insufficiency; J44.9 Chronic obstructive pulmonary disease, unspecified; X58.XXXA Exposure to other specified factors, initial encounter; F17.200 Nicotine dependence, unspecified, uncomplicated | CPT/HCPCS: 11042 ==

== ENCOUNTER 2025-07-05 10:52 | Outpatient (REF) | payer MEDICARE, SELFPAY | END 2025-07-05 23:59 | disposition home or self-care (01) | LOC: WOUND 10:52 | PROVIDERS: ATTENDING PHYSICIAN Surgery; FAMILY PHYSICIAN Internal Medicine | DX: S31.30XA Unspecified open wound of scrotum and testes, initial encounter (principal); N49.2 Inflammatory disorders of scrotum; L89.154 Pressure ulcer of sacral region, stage 4; I44.4 Left anterior fascicular block; I73.9 Peripheral vascular disease, unspecified; F17.200 Nicotine dependence, unspecified, uncomplicated; I35.1 Nonrheumatic aortic (valve) insufficiency; J44.9 Chronic obstructive pulmonary disease, unspecified; X58.XXXA Exposure to other specified factors, initial encounter | CPT/HCPCS: 11042 ==

== ENCOUNTER 2025-07-19 13:50 | Outpatient (REF) | payer MEDICARE, SELFPAY | END 2025-07-19 23:59 | disposition home or self-care (01) | LOC: WOUND 13:50 | PROVIDERS: ATTENDING PHYSICIAN Registered Nurse; FAMILY PHYSICIAN Internal Medicine | DX: S31.30XA Unspecified open wound of scrotum and testes, initial encounter (principal); N49.2 Inflammatory disorders of scrotum; L89.154 Pressure ulcer of sacral region, stage 4; I44.4 Left anterior fascicular block; I73.9 Peripheral vascular disease, unspecified; F17.200 Nicotine dependence, unspecified, uncomplicated; I35.1 Nonrheumatic aortic (valve) insufficiency; J44.9 Chronic obstructive pulmonary disease, unspecified; X58.XXXA Exposure to other specified factors, initial encounter | CPT/HCPCS: 99213 ==